=== PATIENT | female | born 1950 | race Caucasian/White ===

== ENCOUNTER 2025-04-26 15:38 | Emergency (ER) | payer MEDICARE, SELFPAY ==
[2025-04-26 15:47] VITALS: BP 163/84; PULSE 87; RESP 14; TEMP 36.5; O2SAT 94
--- NOTE | 2025-04-26 16:11 | ED.EAR ---
HPI - Ear Problem General Chief complaint: Ear Stated complaint: Right Ear Problem Time Seen by Provider: 04/26/25 15:57 Source: patient and RN notes reviewed Mode of arrival: ambulatory Limitations: no limitations History of Present Illness HPI Narrative: Patient presents today complaining of right ear pain that she currently rates 2/10 with muffled hearing. She had a cold 3 weeks ago and all other symptoms have resolved after taking Mucinex. She tried some Debrox drops yesterday without improvement of symptoms. Related Data Home Medications ?Medication ?Instructions ?Recorded ?Confirmed ?Last Taken ?Type albuterol sulfate 90 mcg/actuation inhalation 04/26/25 Unknown History aerosol inhaler amlodipine 5 mg tablet mg 04/26/25 Unknown History citalopram 20 mg tablet mg 04/26/25 Unknown History diazepam 5 mg tablet mg 04/26/25 Unknown History estradiol 0.5 mg tablet mg 04/26/25 Unknown History gabapentin 100 mg capsule mg 04/26/25 Unknown History ibandronate 150 mg tablet mg PO 04/26/25 Unknown History lisinopril 10 mg tablet mg 04/26/25 Unknown History lovastatin 40 mg tablet mg 04/26/25 Unknown History pantoprazole 40 mg tablet,delayed mg PO 04/26/25 Unknown History release ropinirole 0.5 mg tablet mg 04/26/25 Unknown History Allergies Allergy/AdvReac Type Severity Reaction Status Date / Time No Known Allergies Allergy Verified 04/26/25 15:51 Review of Systems Review of Systems: CONSTITUTIONAL: Denies body aches, fever, chills, or sweats. EYES: Denies visual changes, redness, or discharge. ENT: Denies rhinorrhea, congestion, sore throat. + right ear pain and muffling CARDIOVASCULAR: Denies chest pain, palpitations, or edema. RESPIRATORY: Denies cough or dyspnea. GASTROINTESTINAL: Denies abdominal pain, nausea, vomiting, or diarrhea. GENITOURINARY: Denies dysuria or hematuria. SKIN: Denies rash, itching, or wounds. MUSCULOSKELETAL: Denies back pain, joint pain, or myalgia. NEUROLOGIC: Denies headache, numbness, tingling, or weakness. PSYCH: Denies depression or anxiety. PMFSH Comments At time of signature, I have reviewed and agree with nursing past medical, surgical, social and family history unless otherwise noted. Please see nursing chart for further information. There is no relevant family history pertinent to the presenting complaint Exam Narrative: GENERAL: Well-appearing, well-nourished, and in no acute distress. HEAD: Normocephalic, atraumatic. EYES: EOMI. No redness or drainage. Conjunctivae normal. ENT: Mucous membranes pink and moist. Right ear: Canal normal. No movement or tragal tenderness. Patient's TM appears to have a large rupture in the center. No erythema or drainage noted. NECK: Normal AROM. CHEST: No respiratory distress. EXTREMITIES: Normal range of motion. No edema. SKIN: Warm, dry, no rash. Capillary refill normal. Normal skin turgor. NEURO: No focal deficits. Alert and oriented x3. Gait steady. PSYCH: Normal affect. No signs of depression or anxiety. Course Course Level of Care: Express Care Visit Vital Signs Vital signs: Vital Signs Temperature 97.7 F 04/26/25 15:47 Pulse Rate 87 04/26/25 15:47 Respiratory Rate 14 04/26/25 15:47 Blood Pressure 163/84 H 04/26/25 15:47 Pulse Oximetry 94 04/26/25 15:47 Oxygen Delivery Room Air 04/26/25 15:47 Temperature 97.7 F 04/26/25 15:47 Pulse Rate 87 04/26/25 15:47 Respiratory Rate 14 04/26/25 15:47 Blood Pressure 163/84 H 04/26/25 15:47 Pulse Oximetry 94 04/26/25 15:47 Oxygen Delivery Room Air 04/26/25 15:47 Reviewed Medical Decision Making MDM Narrative Medical decision making narrative: TM appears to be ruptured. Recommend ENT follow-up. Precautions given. Differential Diagnosis Differential Diagnosis: Otitis media, otitis externa, ruptured TM, serous otitis, cerumen impaction Vital Signs Vital Signs: Vital Signs Temperature 97.7 F 04/26/25 15:47 Pulse Rate 87 04/26/25 15:47 Respiratory Rate 14 04/26/25 15:47 Blood Pressure 163/84 H 04/26/25 15:47 Pulse Oximetry 94 04/26/25 15:47 Oxygen Delivery Room Air 04/26/25 15:47 Temperature 97.7 F 04/26/25 15:47 Pulse Rate 87 04/26/25 15:47 Respiratory Rate 14 04/26/25 15:47 Blood Pressure 163/84 H 04/26/25 15:47 Pulse Oximetry 94 04/26/25 15:47 Oxygen Delivery Room Air 04/26/25 15:47 Critical Care Time Critical Care Time Critical Care Time: No Discharge Plan Discharge Clinical Impression: Eardrum rupture, right Patient Disposition: Home Condition: Stable Instructions: Ruptured Eardrum (ED) Additional Instructions: Based on your exam, your eardrum appears to be ruptured. Please follow-up with ENT. Keep your ear as dry as possible. Your blood pressure was elevated above 120/80 today at Urgent Care. This puts you above the threshold for follow up. Please schedule a followup visit with your personal physician as soon as possible, for further evaluation and treatment. Even blood pressure exceeding 120/80 may indicate pre-hypertension. Patient Language: Taiwanese Prescriptions: No Action lovastatin 40 mg tablet amlodipine 5 mg tablet citalopram 20 mg tablet pantoprazole 40 mg tablet,delayed release (DR/EC) PO ropinirole 0.5 mg tablet lisinopril 10 mg tablet gabapentin 100 mg capsule estradiol 0.5 mg tablet albuterol sulfate 90 mcg/actuation HFA aerosol inhaler INHALATION diazepam 5 mg tablet ibandronate 150 mg tablet PO Follow-up/Referrals: Pravin,Isidoro Stanley MD [Primary Care Provider] - Marko Souza MD [Physician] - Time of Disposition: 16:14
--- OUTSIDE RECORDS SUMMARY | 2025-04-26 17:24 | XMS_ITS | Encounter Summary ---
Author Organization [facility] Address [address] [place] [address] Phone Care Team Providers Care Preparation Operator Name Role Phone Lalita Domingo DO Primary Care Provider [phone] Isidoro Costello MD Primary Care Provider [phone] Reason for Referral * Radiology Services (Routine) - Closed Specialty Diagnoses / Procedures Referred By Shari quintana Referred To Contact Radiology Diagnoses Pre-op exam Encounter for patient concern about exposure to infectious organism Procedures EKG 12 LEAD Balaji Jenkins MD Phone: tel: fax: Referral ID Status Reason Start Date Expiration Date Visits Re quested Visits Authorized Closed 09/24/2022 1 1 E AIDE * Radiology Services (Routine) - Closed Specialty Diagnoses / Procedures Referred By Shari quintana Referred To Contact Radiology Diagnoses Pre-op exam Encounter for patient concern about exposure to infectious organism Procedures XR CHEST 2 VIEWS Balaji Jenkins MD Phone: tel: fax: Referral ID Status Reason Start Date Expiration Date Visits Re quested Visits Authorized Closed 09/24/2022 1 1 E AIDE Encounter Details Date Type Department Care Team (Latest Contact Info) Description 09/24/2022 Transcribe Orders [facility] Patient Access Admitting [address] [place] [id number] Balaji Jenkins MD [address] [place] [address] Pre-op exam (Primary Dx); Encounter for patient concern about exposure to infectious organism Social History Tobacco Use Types Packs/Day Years Used Date Smoking Tobacco: Every Day Cigarettes 1 50 Smokeless Tobacco: Never Alcohol Use Standard Drinks/Week Comments Yes 0 (1 standard drink = 0.6 oz pur e alcohol) social Comments No Sex and Gender Information Value Date Recorded Sex Assigned at Not on file Legal Sex Female 7:39 PM CDT Gender Identity Not on file Sexual Orientation Not on file documented as of this encounter Plan of Treatment Scheduled Orders Name Type Priority Associated Diagnoses Orde r Schedule SARS-COV-2 BY MOLECULAR Microbiology Routine Pre-op exam Encounter for patient concern about exposure to infectious organism Expected: 09/24/2022, Expires: 09/24/2023 documented as of this encounter Results * XR CHEST 2 VIEWS (10/14/2022 1:13 PM NURSE AIDE) Anatomical Region Laterality Modality Chest N/A Digital Radiogra phy 10/15/2022 11:4 5 PM NURSE AIDE Impressions 10/15/2022 11:48 PM NURSE AIDE IMPRESSION: COPD. No active pulmonary disease. Narrative 10/15/2022 11:48 PM NURSE AIDE EXAM DESCRIPTION: XR CHEST 2 VIEWS REASON FOR STUDY: Preop lumbar laminectomy. 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 Benign essential hypertension. TECHNIQUE: Frontal and lateral radiographic views of the chest acquired. COMPARISON: 08/24/2018 FINDINGS: LUNGS/PLEURA: No focal consolidation or pneumothorax. No pleural effusion. Emphysema. Postoperative changes of left upper lobectomy. HEART/MEDIASTINUM: Heart size is normal. Normal mediastinal and hilar contours. HARDWARE/LINES/TUBES: None. BONES: No acute findings. OTHER: No other significant finding. THIS IS AN ELECTRONICALLY VERIFIED FINAL REPORT 10/15/2022 11:45 PM - Electronically signed by Julianjimmy Wu M.D. KT: SHAWN Report ID: [id number] Reading Location: [id number] Procedure Note Julian Wu MD - 10/15/2022 EXAM DESCRIPTION: XR CHEST 2 VIEWS REASON FOR STUDY: Preop lumbar laminectomy. 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 Benign essential hypertension. TECHNIQUE: Frontal and lateral radiographic views of the chest acquired. COMPARISON: 08/24/2018 FINDINGS: LUNGS/PLEURA: No focal consolidation or pneumothorax. No pleural effusion. Emphysema. Postoperative changes of left upper lobectomy. HEART/MEDIASTINUM: Heart size is normal. Normal mediastinal and hilar contours. HARDWARE/LINES/TUBES: None. BONES: No acute findings. OTHER: No other significant finding. THIS IS AN ELECTRONICALLY VERIFIED FINAL REPORT 10/15/2022 11:45 PM - Electronically signed by Julian Wu M.D. KT: SHAWN Report ID: [id number] Reading Location: [id number] IMPRESSION: COPD. No active pulmonary disease. Balaji Jenkins MD IMG DIAGNOSTIC ORDERABLES Final Result * EKG 12 LEAD (10/14/2022 12:40 PM NURSE AIDE) Ventricular Rate 90 BPM EXTERNAL EKG Atrial Rate 90 BPM EXTERNAL EKG P-R Interval 146 ms EXTERNAL EKG QRS Duration 88 ms EXTERNAL EKG Q-T Duration 362 ms EXTERNAL EKG QTC CALCULATION 442 ms EXTERNAL EKG P [place] 65 degrees EXTERNAL EKG R [place] -39 degrees EXTERNAL EKG T [place] 52 degrees EXTERNAL EKG 10/14/2022 12:4 0 PM NURSE AIDE Impressions EXTERNAL EKG - 10/15/2022 12:42 PM NURSE AIDE Normal sinus rhythm Left axis deviation Abnormal ECG No previous ECGs available Confirmed by Torrey Haq ([id number]) on 10/15/2022 12:42:48 PM Narrative Procedure Note Torrey Ramos MD - 10/15/2022 IMPRESSION: Normal sinus rhythm Left axis deviation Abnormal ECG No previous ECGs available Confirmed by Torrey Haq ([id number]) on 10/15/2022 12:42:48 PM Balaji Jenkins MD IMG ECG ORDERABLES Final Result EXTERNAL EKG * (ABNORMAL) CMP (COMPREHENSIVE METABOLIC PANEL) (10/14/2022 12:35 PM NURSE AIDE) SODIUM 131(L) 136 - 144 mmol/L 10/14/2022 1:28 PM NURSE AIDE [facility] POTASSIUM 3.8 3.5 - 5.1 mmol/L 10/14/2022 1:28 PM [facility] CHLORIDE 97(L) 100 - 110 mmol/L 10/14/2022 1:28 PM [facility] CO2, VENOUS 25 22 - 32 mmol/L 10/14/2022 1:28 PM [facility] ANION GAP 12.8 8.0 - 20.0 mmol/L 10/14/2022 1:28 PM [facility] GLUCOSE 117(H) 70 - 99 mg/dL 10/14/2022 1:28 PM [facility] BUN 14 8 - 23 mg/dL 10/14/2022 1:28 PM [facility] CREATININE, BLOOD 0.66 0.60 - 1.10 mg/dL 10/14/2022 1:28 PM [facility] BUN/CREATININE RATIO 21(H) 12 - 20 ratio 10/14/2022 1:28 PM [facility] TOTAL PROTEIN 8.0 6.0 - 8.3 g/dL 10/14/2022 1:28 PM [facility] ALBUMIN 4.2 3.5 - 5.2 g/dL 10/14/2022 1:28 PM [facility] Comment: The colormetric methods used for the determination of Albumin may lead to falsely elevated test results in patients suffering from renal failure or insufficiency due to interference with other proteins. A/G RATIO 1.1 1.0 - 2.0 10/14/2022 1:28 PM NURSE AIDE [facility] CALCIUM 10.7(H) 8.9 - 10.3 mg/dL 10/14/2022 1:28 PM NURSE AIDE [facility] T BILI <0.3 <=1.2 mg/dL 10/14/2022 1:28 PM NURSE AIDE [facility] SGOT (AST) 12 <=32 U/L 10/14/2022 1:28 PM NURSE AIDE [facility] SGPT (ALT) 12 <=41 U/L 10/14/2022 1:28 PM NURSE AIDE [facility] ALKALINE PHOSPHATASE 76 35 - 105 U/L 10/14/2022 1:28 PM NURSE AIDE [facility] IS THE PATIENT REQUIRED TO BE FASTING? No 10/14/2022 1:28 PM NURSE AIDE [facility] GFR, ESTIMATED >60 >=60 10/14/2022 1:28 PM NURSE AIDE [facility] Comment: Creatinine Clearance is the preferred criteria for selecting drug dose adjustments in renally impaired patients. The GFR is provided as additional pertinent clinical information. GFR is reported in mL/min/1.73 sq m. Calculation based on the Chronic Kidney Disease Epidemiology Collaboration (CKD- EPI) equation refit without adjustment for race. GFR, EST. >60 >=60 022 1:28 PM NURSE AIDE [facility] GFR, EST. NONAFRICAN >60 >=60 10/14/2022 1:28 PM NURSE AIDE [facility] Blood Venipuncture / Unknown 10/14/2022 12:35 PM NURSE AIDE 10/14/2022 1:00 PM NURSE AIDE us Balaji Jenkins MD CHEMISTRY ORDERABLES Final Resul t [facility] [address] [place] [address] documented in this encounter Visit Diagnoses Diagnosis Pre-op exam- Primary Preoperative examination, unspecified Encounter for patient concern about exposure to infectious organism Pre-op exam Preoperative examination, unspecified Encounter for patient concern about exposure to infectious organism Pre-op exam Preoperative examination, unspecified Encounter for patient concern about exposure to infectious organism documented in this encounter Additional Health Concerns Infection Onset Date Last Indicated Resolved Time COVID - 19 09/24/2022 09/24/2022 10/04/2022 12:1 6 AM NURSE AIDE COVID - 19 Confirmed 10/22/2022 10/22/2022 023 12:16 AM NURSE AIDE documented as of this encounter Care Teams Preparation Operator Relationship Specialty Start Date End Date Lalita Domingo DO [address] [facility] [address] [place] [address] [place] [id number] PCP - General Family Medicine 05/16/20 04/01/23 Isidoro Costello MD [address] [place] [address] PCP - General Family Medicine 04/02/23 documented as of this encounter
--- OUTSIDE RECORDS SUMMARY | 2025-04-26 17:24 | XMS_ITS | Encounter Summary ---
Author Organization [facility] Healthcare Address [address] [place] [address] Care Team Providers Care Burglar Alarm Superintendent Name Role Phone Harley Mcgregor MD Unavailable [phone] Cesar Mishra MD Unavailable [phone] Isidoro Costello MD Primary Care Provider [phone] Jazmin Bryant NP Unavailable Roge Villanueva MD Unavailable [phone] Encounter Details Date Type Department Care Team (Late st Contact Info) Description 03/15/2025 Results Follow-Up [facility] Primary Care at [address] [id number] Isidoro Costello MD [address] [place] [address] [address] [place] [address] CT Abdomen Pelvis WO Contrast Social History Tobacco Use Types Packs/Day Years Used Date Smoking Tobacco: Heavy Smoker Cigarettes 1 58.5 Started: 11/09/1966 Passive Smoke Exposure: Current Smokeless Tobacco: Never Comments:Smoking History Pac ks/day: 0.5 Packs last month. 1 PPD x 50 plus years. Alcohol Use Standard Drinks/Week Comments No 0 (1 standard drink = 0.6 oz pur e alcohol) AUDIT-C Answer Date Recorded Q1: How often do you have a drink containing alc ohol? Monthly or less 11/23/2024 Q2: How many drinks containi ng alcohol do you have on a typical day when you are drinking? 1 or 2 11/23/2024 Q3: How often do you have si x or more drinks on one occasion? Never 11/23/2024 PHQ-2 Answer Date Recorded PHQ-2 Total Score (If total score is 3 or more points, staff should administer the PHQ-9) 0 11/29/2024 PHQ-9 Answer Date Recorded PHQ-9 Total Score 16 07/14/2024 Personal Safety Answer Date Recorded Have you ever been in or are you currently in a harmful physical or emotional relationship or is someone making you feel afraid or unsafe? Denies 08/17/2023 Comments No Sex and Gender Information Value Date Recorded Sex Assigned at Not on file Legal Sex Female 12:33 PM RN TELE Gender Identity Not on file Sexual Orientation Not on file documented as of this encounter Miscellaneous Notes * Telephone Encounter - Nirali Miller - 03/16/2025 12:29 PM CDT Call Back Caller???s Concern: I read patient Dr Costello's note and they expressed understanding Does message need to be routed? No documented in this encounter Plan of Treatment Not on file documented as of this encounter Visit Diagnoses Not on filedocumented in this encounter Care Teams Burglar Alarm Superintendent Relationship Specialty Start Date End Date Isidoro Costello MD [address] [facility] [address] [place] [address] PCP - General Family Medicine 12/18/22 Harley Mcgregor MD Consulting Physician Thoracic Surgery 12/27/18 Cesar Mishra MD Consulting Physician Gastroenterology 11/11/19 Jazmin Bryant NP [address] [place] [address] Nurse Practitioner Family Medicine 12/18/22 Roge Villanueva MD [address] [address] Medical Oncologist/Hematologis t Hematology and Oncology 02/19/23 documented as of this encounter
--- OUTSIDE RECORDS SUMMARY | 2025-04-26 17:24 | XMS_ITS | Clinical Summary ---
Author Organization [facility] Address [address] [place] [address] Care Team Providers Care Loan Administrator Name Role Phone Harley Mcgregor MD Unavailable [phone] Cesar Mishra MD Unavailable [phone] Isidoro Costello MD Primary Care Provider Jazmin Bryant NP Unavailable Roge Villanueva MD Unavailable [phone] Allergies No known active allergies Medications cyanocobalamin (Vitamin B-12) 1,000 mcg tabletIndications:Prev ention of Vitamin B12 Deficiency Take 1 tablet (1,000 mcg total) by mouth daily Active dyybwyxdiwwc-fcvo-afkh c acid 18-400 mg-mcg tabletIndications:Zabrina min Deficiency Prevention Take 1 tablet by mouth daily Active naloxone (NARCAN) 4 mg/actuation spray,non-aerosol Administer 1 spray into affected nostril(s) as needed for opioid reversal or respiratory depression Call 911. Administer a single spray in one nostril. Repeat every 3 minutes as needed if no or minimal response. 2 each 2022 Active Additional Information Patient not taking.Reported on 03/21/2025 rvmtpbaucc-dexykhcn-ja rmoterol (BREZTRI) 160-9-4.8 mcg/actuation inhalerIndications:Bro nchospasm Prevention with COPD Inhale 2 puffs 2 (two) times a day 10.7 g 3 2023 Active Additional Information Patient not taking.Reported on 03/21/2025 amLODIPine (NORVASC) 5 mg tabletIndications:Prim roz hypertension TAKE 1 TABLET(5 MG) BY MOUTH DAILY 90 tablet 3 2023 Active estradioL (ESTRACE) 0.5 mg tablet Take 1 tablet (0.5 mg total) by mouth daily 90 tablet 3 09/27 Active lisinopriL (PRINIVIL,ZESTRIL) 10 mg tabletIndications:Prim roz hypertension Take 1 tablet (10 mg total) by mouth daily 90 tablet 1 2024 Active ibandronate (BONIVA) 150 mg tabletIndications:Post -Menopausal Osteoporosis Take 1 tablet (150 mg total) by mouth every 30 (thirty) days Take in AM with glass of water prior to food, don't lie down for 30 minutes. 3 tablet 3 12/26 Active lovastatin (MEVACOR) 40 mg tabletIndications:Pure hypercholesterolemia TAKE 1 TABLET(40 MG) BY MOUTH EVERY NIGHT 90 tablet 3 2024 Active albuterol HFA (ProAir HFA) 90 mcg/actuation inhalerIndications:Chr onic obstructive pulmonary disease, unspecified COPD type (HCC) Inhale 2 puffs as directed 1 each 11 2024 Active vonoprazan (Voquezna) 20 mg tablet Take 20 mg by mouth daily 90 tablet 3 2024 Active ondansetron (ZOFRAN) 4 mg tablet Take 1 tablet (4 mg total) by mouth 4 (four) times a day as needed for nausea or vomiting 20 tablet 3 2024 Active senna-docusate (PERICOLACE) 8.6-50 mg Take 2 tablets by mouth nightly as needed for constipation 180 tablet 3 2024 Active gabapentin (NEURONTIN) 100 mg capsule Take 1 capsule (100 mg total) by mouth 3 (three) times a day 90 capsule 2 03/22 Active rOPINIRole (REQUIP) 0.5 mg tablet Take 1 tablet (0.5 mg total) by mouth 2 (two) times a day 180 tablet 1 2024 Active diazePAM (VALIUM) 5 mg tabletIndications:Gene ralized anxiety disorder BY MOUTH 60 tablet 2024 Active citalopram (CeleXA) 20 mg tabletIndications:Mode rate episode of recurrent major depressive disorder (HCC),Generalized anxiety disorder TAKE 1 TABLET (20 MG TOTAL) BY MOUTH DAILY 90 tablet 1 04/21 Active citalopram (CeleXA) 20 mg tabletIndications:Mode rate episode of recurrent major depressive disorder (HCC),Generalized anxiety disorder Take 1 tablet (20 mg total) by mouth daily 90 tablet 3 04/21 Discontinued rOPINIRole (REQUIP) 0.5 mg tablet TAKE 1 TABLET(0.5 MG) BY MOUTH TWICE DAILY 180 tablet 1 03/29 Discontinued( Reorder) diazePAM (VALIUM) 5 mg tabletIndications:Gene ralized anxiety disorder TAKE 1 TABLET(5 MG) BY MOUTH EVERY 12 HOURS NEEDED FOR ANXIETY 60 tablet 1 04/11 Discontinued Active Problems Problem Noted Date Diagnosed Date Epigastric abdominal tenderness without rebound tenderness 03/21/2025 Angiodysplasia of gastrointestinal tract 025 Epigastric pain 03/21/2025 Hx of peptic ulcer 03/21/2025 Hormone replacement therapy 09/27/2024 Assessment & Plan (09/27/2024 11:29 AM SECURITY DOOR INSTALLER): Risks and benefits of hormone replacement (HRT) for vasomotor symptoms related to menopause discussed. Patient aware risks associated with HRT include increased risk of blood clots, heart attack, stroke, and increased risk of breast cancer. Patient verbalizes understanding of risk and benefits and wishes to proceed with HRT. - Refill on oral estradiol 0.5 mg erx'd to [facility] per patient request. Restless leg syndrome 08/29/2024 Sacroiliitis 09/14/2023 halfway (current) use of opiate analgesic 04/2023 Adjustment insomnia 09/07/2023 Overview (09/07/2023): continuing mirtazepine 15 mg qhs also will continue citalopram, Abilfy Encounter for Medicare annual wellness exam 06/11 Assessment & Plan (07/08/2023 4:43 PM CDT): A(n) yearly Medicare Annual Wellness Visit has been performed today. Elise Romano is not up to date on screening tests. She is in need of DEXA and Colon cancer screening. She is not up to date on needed preventative vaccinations; She is in need of Influenza. We discussed healthy lifestyle habits, educational material has been given. Medications reviewed, changes documented as per the medical record and discussed with patient along with risks vs benefits. Urged discussion about counseling resources through [facility] Flu shot will be due later this fall Will increase Abilify to 5 mg daily Continuing current regimen otherwise Will leave labs to next V, as hematology watching counts and last lipid panel was good Return in 1 month Encounter for screening colonoscopy 04/02/2023 [facility] Pap smear of vagina 12/15/2022 Overview (12/15/2022): Negative HR HPV x 4. Two areas consistent with mild dysplasia not biopsied. Pap repeated. Quitting smoking to help resolve dysplasia recommended. 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 DDD (degenerative disc disease), lumbar 01/17/20 22 Lumbar radiculopathy 12/25/2021 Assessment & Plan (10/27/2022 2:00 PM SECURITY DOOR INSTALLER): Status post laminectomy. Patient is clinically improving. Keep scheduled follow- up appointment with orthopedic surgeon next week. Insomnia secondary to chronic pain 12/25/2021 Left hip pain 12/03/2021 Assessment & Plan (12/03/2021 8:51 PM SECURITY DOOR INSTALLER): Xrays ordered. Toradol given. Will follow. Chronic left-sided low back pain with left-sided sciatica 12/03/2021 Assessment & Plan (12/03/2021 8:51 PM SECURITY DOOR INSTALLER): Referred to pain mgmt for further eval/mgmt. Iron deficiency anemia due to chronic blood loss 11/26/2020 Overview (09/21/2017): EGD, colon 2017, iron infusion 2016 Assessment & Plan (06/27/2022 6:43 PM CDT): Suspect iron infusion caused adverse reaction. 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 Assessment & Plan (11/21/2020 7:58 PM SECURITY DOOR INSTALLER): Patient has been managed with iv Venofer infusions. Suspect persistent chronic occult GI blood loss plus effect of anemia of chronic disease from alcohol use disorder. Assessment & Plan (10/16/2020 8:48 AM SECURITY DOOR INSTALLER): Fatigued. Patient will see hematology/oncology for possible iron infusions. Assessment & Plan (06/13/2020 9:14 AM CDT): Resolved. Assessment & Plan (01/04/2020 2:22 PM SECURITY DOOR INSTALLER): Last hgb and iron levels were normal. Plan to repeat these at next appointment. Assessment & Plan (11/24/2019 9:25 AM SECURITY DOOR INSTALLER): EGD showed recently bleeding AVM and diffuse gastropathy. AVM was treated and she was placed on PPI. She had 3 iron infusions back in 10/2019. She has no signs of overt GI bleed at this time. Will schedule colonoscopy to complete workup and recheck iron and CBC today. Will also get CT of abdomen at next appointment once colonoscopy is done. Assessment & Plan (10/19/2019 11:28 AM SECURITY DOOR INSTALLER): PCP increased iron supplement to BID about a week or 2 ago. Pt's iron noted to be 21 and hgb 8. Will schedule for 3 iron infusions and then check CBC and iron about 1 month after receiving infusions. We will set her up for EGD due to past history of AVM's and recent Celebrex use. Pt says she has stopped the Celebrex at her last PCP appointment. Will order 3 IV iron infusions to be done once a week. Will then re-check iron and CBC about 1 month after infusions are completed. Pt told that if she sees active GI bleeding or feeling severely fatigued that she should go to ER right away. Pt and verbalized understanding. Alcohol use 11/21/2020 Assessment & Plan (11/21/2020 8:02 PM SECURITY DOOR INSTALLER): She continues to drink and this will likely eventually cause liver changes. Need to check her liver enzymes every 6 months. Moderate episode of recurrent major depressive d isorder 10/16/2020 Assessment & Plan (02/01/2023 1:38 PM CDT): Abilify trial Discussed counseling, may be helpful If abilify not an option, we may instead increase citalopram to 40 mg daily Clonazepam refilled, but I intend as PRN (use as needed as prescribed) Assessment & Plan (12/18/2022 2:40 PM SECURITY DOOR INSTALLER): Has had increased stress/anxiety as of late. She has been out of her Clonazepam. Discussed prn use for this and may want to consider increasing her Celexa for better overall control. Assessment & Plan (10/27/2022 2:00 PM SECURITY DOOR INSTALLER): Stable. Cont. Current prescription medications. Assessment & Plan (04/27/2022 8:44 PM CDT): Stable. Cont. Current prescription medications. Assessment & Plan (02/27/2021 12:00 PM CDT): Clinically improved, continue current meds. Assessment & Plan (10/16/2020 8:49 AM SECURITY DOOR INSTALLER): Stable. Cont. Current meds. COPD (chronic obstructive pulmonary disease) 08/2020 Assessment & Plan (12/18/2022 4:38 PM SECURITY DOOR INSTALLER): Has been using prn inhaler 2x/day due to SOB. Discussed maintenance inhaler and will trial Anthonytrelpidio, samples provided. Education provided on maintenance vs prn inhaler. Assessment & Plan (04/27/2022 8:55 PM CDT): At baseline, Cont current prescription medication. Assessment & Plan (07/25/2021 3:42 PM CDT): Pt using albuterol daily and ineffective. Pt offered pulmonology referral and pt declined. Dereck added and sent. Pt has f/u in October for recheck Assessment & Plan (02/27/2021 12:00 PM CDT): Mild wheezing. Use albuterol as directed. Patient strongly encouraged to quit smoking. Notify our office if there is no improvement. Assessment & Plan (10/16/2020 8:47 AM SECURITY DOOR INSTALLER): Stable. Cont. Current meds. Assessment & Plan (06/13/2020 9:13 AM CDT): Asx. Continue current therapy. Assessment & Plan (03/06/2020 4:43 PM CDT): Asx. Continue current therapy. Assessment & Plan (02/17/2020 10:16 AM CDT): Pulse ox has ranged in the low 90's. She does not wear O2 at home. Pt has albuterol inhaler she has needed it once a night for the last week, and then in the past couple days is also using it in the am Does not take a controller inhaler. Denies any breathing difficulties. This does not appear to be an emergent problem today. We will have PCP address this at office visit at the end of the month. She may need a daily, controller inhaler. Please consider the albuterol as a rescue only medication. If needing the albuterol more than 2xwk, please contact office. Family history of colon cancer in mother 020 Overview (11/23/2019): Added automatically from request for surgery [id number] History of alcohol abuse 11/23/2019 Assessment & Plan (03/06/2020 4:45 PM CDT): Patient aware that she should not drink alcohol with the chronic medications she's currently on. She is aware that concomitant use can cause respiratory depression. Assessment & Plan (11/23/2019 10:56 AM SECURITY DOOR INSTALLER): No alcohol use since hospitalization. History of GI bleed 2019 Overview (2019): Added automatically from request for surgery [id number] Assessment & Plan (11/21/2020 7:57 PM SECURITY DOOR INSTALLER): H/o bleeding AVMs in the duodenum. Likely recurrent bleeding and possibly AVMs in the small bowel. Will schedule EGD VIOLET to be followed by capsule video camera exam of the small intestine. AVM (arteriovenous malformation) 10/19/2019 Assessment & Plan (11/23/2019 10:57 AM SECURITY DOOR INSTALLER): Found recently bleeding AVM on EGD done while hospitalized. Pt has no sign of GI bleed at this time. Assessment & Plan (10/19/2019 11:29 AM SECURITY DOOR INSTALLER): Will schedule EGD due to recent use of Celebrex and history of AVM's. Primary osteoarthritis of right knee 09/02/2018 Arthritis of carpometacarpal (CMC) joint of left thumb 04/12/2018 Degenerative lumbar spinal stenosis 09/23/2017 Assessment & Plan (12/03/2021 8:51 PM SECURITY DOOR INSTALLER): Referred to pain mgmt. Age-related osteoporosis wit hout current pathological fracture 09/21/2017 Assessment & Plan (04/27/2022 8:44 PM CDT): Weight-bearing exercises recommended. Assessment & Plan (10/16/2020 8:48 AM SECURITY DOOR INSTALLER): Weight bearing exercises recommended. Primary hypertension 12/05/2014 Overview (10/16/2020): Assessment & Plan (12/18/2022 2:38 PM SECURITY DOOR INSTALLER): BP elevated today in office and at previous visit with Dr Ceballos. Patient notes it has been elevated as of late, attributing to stress/anxiety. Will increase the Lisinopril to 5 mg daily. Home BP log and follow up in 6 weeks. Assessment & Plan (10/27/2022 2:01 PM SECURITY DOOR INSTALLER): Blood pressure is at goal of less than 140/90, continue current prescription medications. Assessment & Plan (04/27/2022 8:57 PM CDT): BP at goal of < 140/90, cont current Rx meds. Assessment & Plan (07/25/2021 3:39 PM CDT): Stable/ Improved. Blood pressure is adequately controlled on current medication. We will not make any medication changes today. Will have her follow-up in 6 months for continued monitoring and management Assessment & Plan (02/27/2021 11:59 AM CDT): Stable. Cont. Current meds. Assessment & Plan (10/16/2020 8:44 AM SECURITY DOOR INSTALLER): Stable. Cont. Current meds. Assessment & Plan (06/13/2020 9:13 AM CDT): Bps within normal range, cont current meds. Assessment & Plan (03/06/2020 4:42 PM CDT): Stable. Cont. Current meds. Generalized anxiety disorder 12/05/2014 Overview (10/16/2020): Assessment & Plan (12/18/2022 2:41 PM SECURITY DOOR INSTALLER): Has had increased stress/anxiety as of late. She has been out of her Clonazepam. Discussed prn use for this and may want to consider increasing her Celexa for better overall control. Assessment & Plan (10/27/2022 2:01 PM SECURITY DOOR INSTALLER): Stable. Cont. Current prescription medications. Will hold off read feeling clonazepam until patient is off of hydrocodone. Patient understands and will contact office once she has weaned off of the hydrocodone. Assessment & Plan (04/27/2022 8:56 PM CDT): Stable. Cont. Current prescription medications. Assessment & Plan (07/25/2021 3:40 PM CDT): Stable on current medication. Continue Clonazepam as ordered. May follow up in 6 months Assessment & Plan (02/27/2021 12:00 PM CDT): Stable. Cont. Current meds. Assessment & Plan (10/16/2020 8:49 AM SECURITY DOOR INSTALLER): Clinically improved, continue current meds. Assessment & Plan (06/13/2020 9:15 AM CDT): Clinically improved, continue current meds. Assessment & Plan (03/06/2020 4:43 PM CDT): New Rx sent for lower strength tablet. Clinically improved. Assessment & Plan (02/17/2020 10:14 AM CDT): Patient reiterated no suicidal thoughts at this time; take medication as directed; contact 911 and go to the ER if becomes suicidal; discussed side effects of medication with patient; encouraged healthy diet and exericise; encouraged patient to see a counselor Discussed/ordered labs, Condition is worsening encouraged healthy, low carbohydrate lifestyle and at least 150min/week of exercise, currently on citalopram 40mg daily, trazodone 200mg at bedtime, she was recently weaned off of clonazepam 1mg. He weaned her off of the clonazepam 1mg once daily, weaning schedule was 1/2 tab x 1 wk, then every other day, then has been completely off of it for the last 7-10 days. Pt has appointment with Dr Domingo on 03/06/2020. We will send Dr. Costello a message today seeing if he will give patient clonazepam 0.5mg daily until pt sees Dr. Domingo at the end of the month. Dr. Domingo is out of the office today. Gastroesophageal reflux disease 12/05/2014 Overview (10/16/2020): Assessment & Plan (02/27/2021 11:59 AM CDT): Clinically improved, continue current meds. Assessment & Plan (10/16/2020 8:46 AM SECURITY DOOR INSTALLER): Asx. Continue current therapy. Managed by gastroenterology. Assessment & Plan (01/04/2020 2:21 PM SECURITY DOOR INSTALLER): Pt says she has both omeprazole and pantoprazole and unsure which one to take. Pt says her symptoms are well controlled on PPI. Discussed that these are both work the same way. Will have her stop the omeprazole and continue on pantoprazole 40mg daily. Refills given. Benign hypertension 03/25/2014 Overview (02/12/2017): BENIGN HYPERTENSION History of colonic polyps 03/25/2014 Overview (02/12/2017): Hx of colonic polyps Hyperlipidemia 03/25/2014 Overview (06/13/2020): Assessment & Plan (12/18/2022 2:40 PM SECURITY DOOR INSTALLER): Continuing Lovastatin, no side effects reported. Labs ordered. Assessment & Plan (10/27/2022 2:01 PM SECURITY DOOR INSTALLER): Low-cholesterol diet recommended. Continue current prescription medications. Assessment & Plan (04/27/2022 8:56 PM CDT): LDL at goal of < 100. Cont current Rx meds. Assessment & Plan (07/25/2021 3:38 PM CDT): Lipid abnormalities are stable, reviewed previous lipid levels in [facility]. Pharmacotherapy as ordered. Order for lipid panel was given today to be obtained. Pt voiced understanding of lab drawn and continuation of current medication regimen. Assessment & Plan (02/27/2021 11:59 AM CDT): LDL at goal. Continue current management. Assessment & Plan (10/16/2020 8:46 AM SECURITY DOOR INSTALLER): Stable. Cont. Current meds. Assessment & Plan (06/13/2020 9:13 AM CDT): Clinically improved, continue current meds. Assessment & Plan (03/06/2020 4:42 PM CDT): Stable. Cont. Current meds. Disorder of autonomic nervous system 03/25/2014 Overview (02/14/2017): AUTONOMIC NERVE DIS NEC Cigarette nicotine dependence without complicati on 08/08/2013 Overview (03/06/2020): Assessment & Plan (04/27/2022 8:55 PM CDT): Advised patient to quit smoking. Assessment & Plan (10/22/2021 1:56 PM SECURITY DOOR INSTALLER): Advised patient to quit smoking. Assessment & Plan (02/27/2021 12:00 PM CDT): Advised patient to quit smoking. Assessment & Plan (10/16/2020 8:49 AM SECURITY DOOR INSTALLER): Advised patient to quit smoking. Assessment & Plan (06/13/2020 9:15 AM CDT): Advised patient to quit smoking. Assessment & Plan (03/06/2020 4:43 PM CDT): Advised patient to quit smoking. History of lung cancer 06/23/2012 Resolved Problems Problem Noted Date Diagnosed Date Resolved Date History of peptic ulcer disease 03/21/2025 03/21/2025 Impacted cerumen of right ear 10/21/2021 04/21/2022 Iron deficiency anemia due t o chronic blood loss 11/26/2020 06/20/2022 Overview (11/26/2020): Added automatically from request for surgery [id number] Assessment & Plan (02/27/2021 12:00 PM CDT): Asx. Continue current therapy. Atelectasis of both lungs 2019 Sepsis 2019 06/12/2020 Acute respiratory failure wi th hypoxia and hypercapnia 2019 06/12/2020 Acidosis 2019 03/06/2020 Near syncope 2019 03/06/2020 Alcoholic intoxication with complication 2019 10/21/2022 BMI 23.0-23.9, adult 10/15/2018 022 Tear of medial meniscus of r ight knee, initial encounter 09/02/2018 10/14/2019 Mild episode of recurrent ma cortez depressive disorder 03/25/2014 10/15/2020 Overview (03/06/2020): Assessment & Plan (06/13/2020 9:15 AM CDT): Clinically improved, continue current meds. Assessment & Plan (03/06/2020 4:42 PM CDT): Clinically improved, continue current meds. Anxiety state 03/25/2014 10/15/2018 Overview (02/14/2017): ANXIETY STATE NOS Smoking 06/06/2011 02/27/2021 Assessment & Plan (11/21/2020 8:00 PM SECURITY DOOR INSTALLER): Patient continued to smoke unfortunately and she did try several methods to quit but failed. We discussed again the importance of stopping alcohol on her health overall and specially effect on her lungs. Encounters Date Type Department Care Team Description 5 Telephone [facility] Gastroenterology at [address] [place] [address] Charles Jauregui NP 5 Telephone [facility] Primary Care at [address] [address] Isidoro Costello MD 5 Telephone [facility] Primary Care at [address] [address] Odessa Edwards MA 5 8:18 AM CDT - 5 11:59 PM CDT Hospital Encounter [address] [address] Upper abdominal pain Discharge Disposition: Discharge to home or self care [address] [address] Nalremya, Ruba D. 5 2:10 PM CDT Anesthesia Event [address] [phone] Drew Wells DO 5 1:00 PM CDT - 5 1:30 PM CDT Surgery [address] [address] Cesar Mishra MD ESOPHAGOGASTRODUODENOSCOPY BIOPSY 5 11:53 AM CDT - 5 3:13 PM CDT Hospital Encounter [address] [address] Cesar Mishra MD Epigastric pain; Hx of peptic ulcer Discharge Disposition: Discharge to home or self care 5 Orders Only [facility] Gastroenterology at [address] [address] Cesar Mishra MD Upper abdominal pain (Primary Dx) 5 8:15 AM CDT Office Visit [facility] Gastroenterology at [address] [address] Charles Jauregui NP Epigastric abdominal tenderness without rebound tenderness (Primary Dx); Nausea and vomiting, unspecified vomiting type; Chronic gastritis without bleeding, unspecified gastritis type; Angiodysplasia of gastrointestinal tract; Tubular adenoma of colon; Tobacco use disorder; Constipation, unspecified constipation type 5 Telephone [facility] Gastroenterology at [address] [place] [address] Charles Jauregui NP 5 Results Follow-Up [facility] Primary Care at [address] [phone] Isidoro Costello MD CT Abdomen Pelvis WO Contrast 5 1:54 PM CDT - 5 11:59 PM CDT Hospital Encounter [address] [address] Epigastric abdominal tenderness without rebound tenderness Discharge Disposition: Discharge to home or self care [address] [address] Nalepa, February. 5 Results Follow-Up [facility] Primary Care at [address] [phone] Isidoro Costello MD H. pylori antigen, stool Stool 5 Results Follow-Up [facility] Primary Care at [address] [phone] Isidoro Costello MD CBC with auto differential, Differential, auto 5 12:33 PM CDT - 5 11:59 PM CDT Hospital Encounter [address] [address] Epigastric abdominal tenderness without rebound tenderness Discharge Disposition: Discharge to home or self care 5 12:30 PM CDT Lab [facility] Outpatient Lab at [address] [phone] 5 8:30 PM CDT - 5 11:59 PM CDT Hospital Encounter [address] [address] Epigastric abdominal tenderness without rebound tenderness Discharge Disposition: Discharge to home or self care 5 3:30 PM CDT Lab [facility] Outpatient Lab at [address] [phone] 5 3:00 PM CDT Office Visit [facility] Primary Care at [address] [address] Isidoro Costello MD Epigastric abdominal tenderness without rebound tenderness (Primary Dx) from Last 3 Months Immunizations Immunization Administration Dates Next Due Influenza, Quadrivalent, Hig h Dose, Preservative Free, Intrr 08/03/2023,10/27/2022,07/25/2021,07/26 Influenza, Quadrivalent, Spl it, Preservative Free, Intramuscular 09/15/2018 Influenza, Split 07/17/2010 Influenza, Trivalent, Adjuva nted, Intramuscular 09/17/2019,09/15/2018 Influenza, Trivalent, High D ose, Split, Preservative Free, Intramuscular 08/29/2024,09/21/2017,09/15/2016,09/10,08/14/2014 Influenza, Trivalent, IM (MDV) 07/22/2013,2010,08/07/2009 Influenza, Unspecified 08/03/2023(Deferr ed: Patient Refused),07/14/2023,11/09/2022(Deferre d: Patient Refused) Pfizer SARS-CoV-2 Monovalent Vaccination (12+ Yrs) PURPLE 01/29/2021,01/08/2021 Pneumococcal Conjugate PCV 13 09/10/2015 Pneumococcal Polysaccharide PPV23 10/12/2018, Pneumococcal, Unspecified 09/06/2016 Tdap 06/09/2014,04/26/2014 ZOSTER LIVE 08/01/2010 Surgical History Surgery Date Site/Laterality Comments OTHER SURGICAL HISTORY 11/09/2001 - 11/08/2002 Cancer, lung: BRIAN lobectomy OTHER SURGICAL HISTORY 11/09/1990 - 11/08/1991 carpal tunnel: carpal tunnel release CARPAL TUNNEL RELEASE 11/09/1989 - 11/08/1990 Carpal tunnel release HYSTERECTOMY 11/09/1993 - 11/08/1994 Hysterectomy OTHER SURGICAL HISTORY 11/09/1963 - 11/08/1964 : 12 hr labor OTHER SURGICAL HISTORY 11/09/1966 - 11/08/1967 : 4 hr labor OTHER SURGICAL HISTORY Right Carpal tunnel release x 2 TOTAL ABDOMINAL HYSTERECTOMY W/ BILATERAL SALPINGOOPHORECTOMY Hysterectomy, total abdominal, BSO APPENDECTOMY Appendectomy OTHER SURGICAL HISTORY Left Lung Cancer: Upper Lung, Lobectomy OTHER SURGICAL HISTORY Right Breast lump: removal of a benign tumor, breast x 2 COLONOSCOPY 08/09/2016 - 09/08/2016 BACK SURGERY 10/09/2022 - 11/08/2022 Microscopic lumbar laminectomy L3, L4, L5 POLYPECTOMY UPPER GASTROINTESTINAL ENDOSCOPY 03/22/2025 Medical History Medical History Date Comments Hx Other Medical carpal tunnel Hx Other Medical 2010 iron deficiency anemia due to GI bleed Hx Other Medical ; Outc ome: 36W0D week 7lb(s) 12 oz Male Hx Other Medical ; Outc ome: 40W0D week 6lb(s) 4 oz Female Hx Other Medical Lung Cancer; Co mments: MTB 12/05/2014 - Hx Other Medical Breast lump; Co mments: MTB 12/05/2014 - Tear of medial meniscus of r ight knee, initial encounter 09/02/2018 Cancer of lung (HCC) Cancer, scott g Depression Hypertension Colon polyp Family History Medical History Relation Name Comments Lung cancer Father Cancer -lung; Hyperlipidemia Maternal Grandmother Hyper lipidemia; Hypertension Maternal Grandmother Hyperte nsion; Colon cancer Mother Cancer, colon; Hyperlipidemia Mother Hyperlipidemi a; Hypertension Mother Hypertension; Lung cancer Mother Cancer, lung; C ause of : Cancer, lung Relation Name Status Comments Father Maternal Grandmother Mother (Age 85) Social History Tobacco Use Types Packs/Day Years Used Date Smoking Tobacco: Heavy Smoker Cigarettes 1 58.5 Started: 11/09/1966 Passive Smoke Exposure: Current Smokeless Tobacco: Never Tobacco Cessation:Ready to Q uit: Not Asked; Counseling Given: Not Answered Comments:Smoking History Packs/day: 0.5 Packs last month. 1 PPD x 50 plus years. Alcohol Use Standard Drinks/Week Comments No 0 (1 standard drink = 0.6 oz pur e alcohol) AUDIT-C Answer Date Recorded Q1: How often do you have a drink containing alc ohol? 2-4 times a month 03/21/2025 Q2: How many drinks containi ng alcohol do you have on a typical day when you are drinking? 1 or 2 03/21/2025 Q3: How often do you have si x or more drinks on one occasion? Never 03/21/2025 PHQ-2 Answer Date Recorded PHQ-2 Total Score (If total score is 3 or more points, staff should administer the PHQ-9) 0 11/29/2024 PHQ-9 Answer Date Recorded PHQ-9 Total Score 16 07/14/2024 Personal Safety Answer Date Recorded Have you ever been in or are you currently in a harmful physical or emotional relationship or is someone making you feel afraid or unsafe? Denies 03/22/2025 Comments No Sex and Gender Information Value Date Recorded Sex Assigned at Not on file Legal Sex Female 12:33 PM [employer] Gender Identity Not on file Sexual Orientation Not on file Obstetrics History Para Term AB IAB SAB Ectopic Multiple Livin g Live Births 2 2 2 Date Outcome GA Total Labor Labor//3rd Weight Sex Type Anes PTL Janet A1 A5 Name Clin 4 Term 40w0 d 3.515 kg (7 lb 12 oz) M Vag-S pont 7 Term 40w0 d 2.835 kg (6 lb 4 oz) F Vag-S pont Last Filed Vital Signs Vital Sign Reading Time Taken Comments Blood Pressure 165/83 03/22/2025 2:55 PM CDT Pulse 89 03/22/2025 2:55 PM CDT Temperature 35.9 C (96.7 F) 03/22/2025 12:04 PM CDT Respiratory Rate 16 03/22/2025 2:55 PM CDT Oxygen Saturation 94% 03/22/2025 2:55 PM CDT Inhaled Oxygen Concentration - - Weight 54.9 kg (121 lb) 03/22/2025 12:04 PM CDT Height 157.5 cm (5' 2) 03/22/2025 12:04 PM CDT Body Mass Index 22.13 03/22/2025 12:04 PM CDT Plan of Treatment Health Maintenance Due Date Last Done Comments Hepatitis B Screening 1968 Well Visit 65+ 07/06/2024 07/06/2023, 10/09, 10/15/2020, Additional history exists Covid-19 Vaccine ( season) 2024 08/22/2021, 01/29/2021, 01/08/2021 Zoster Vaccine (2 of 3) 07/14/2025 08/01/2010 Post poned from 09/26/2010 (Insurance / Financial) DTaP/Tdap/Td Vaccine (3 - Td or Tdap) 11/08/2025 06/09/2014, 04/26/2014 Postponed from 06/09/2024 (Insurance / Financial) Depression Screening 11/29/2025 11/29/2024, 09/27/2024, 07/14/2024, Additional history exists Osteoporosis Screening-Bone Density Scan 01/12/2026 01/13/2024, 05/16/2020, 05/16/2020, Additional history exists Fall Risk Assessment 03/22/2026 03/22/2025, 11/29/2024, 03/08/2024, Additional history exists Pneumococcal vaccine 65+ Completed 018, 09/06/2016, 09/10/2015, Additional history exists Hepatitis C Screening Completed 06/13/2020 Colon Cancer Screening-CT Colonography Discontinued 08/17/2023, 09/08/2016, 09/08/2016, Additional history exists Colon Cancer Screening-Colonoscopy Discontinued 08/17/2023, 09/08/2016, 09/08/2016, Additional history exists Colon Cancer Screening-DNA Stool Discontinued 08/17/2023, 09/08/2016, 09/08/2016, Additional history exists Colon Cancer Screening-FIT Discontinued 08/17, 01/31/2017, 09/08/2016, Additional history exists Colon Cancer Screening-FOBT Discontinued 08/17/2023, 01/31/2017, 09/08/2016, Additional history exists Colon Cancer Screening-Sigmoidoscopy Discontinued 08/17/2023, 09/08/2016, 09/08/2016, Additional history exists Colorectal Cancer Screening Discontinued Influenza Vaccine Completed 08/29/2024, , 07/14/2023, Additional history exists Breast Cancer Screening-Mammogram Discontinued 10/10/2024, 10/04/2024, 10/04/2024, Additional history exists Procedures Procedure Name Priority Date/Time Associated Diagnosis Comments CT ABDOMEN PANCREAS W WO CONTRAST Schedule VIOLET, Read Routine (Patient lives out of area) 03/28/2025 8:42 AM CDT Upper abdominal pain SURGICAL PATHOLOGY STAT 03/22/2025 2:24 PM CDT Epigastric pain Hx of peptic ulcer ESOPHAGOGASTRODUODENOSCOPY BIOPSY 03/22/2025 2:04 PM CDT Epigastric pain Hx of peptic ulcer EGD 03/22/2025 12:[address] ABDOMEN PELVIS WO CONTRAST Routine 2:10 PM CDT Epigastric abdominal tenderness without rebound tenderness H. PYLORI ANTIGEN, STOOL Routine 025 12:33 PM CDT Epigastric abdominal tenderness without rebound tenderness DIFFERENTIAL AUTO Routine 02/02/2025 12:00 PM CDT Epigastric abdominal tenderness without rebound tenderness CBC WITH AUTO DIFFERENTIAL Routine 02/02 12:00 PM CDT Epigastric abdominal tenderness without rebound tenderness SCREENING MAMMOGRAM 2D BILATERAL Schedule Routine, Read Routine (OP Routine) 10/10/2024 3:56 PM [employer] DEXA AXIAL SKELETON BONE DENSITY 1 OR MORE SITES Schedule Routine, Read Routine (OP Routine) 01/13/2024 1:58 PM [employer] Age-related osteoporosis without current pathological fracture COLONOSCOPY 08/17/2023 8:46 AM CDT HEPATITIS C ANTIBODY Routine 06/13/2020 11:24 AM CDT Encounter for hepatitis C screening test for low risk patient from Last 3 Months or Most Recently Relevant to Health Maintenance Results * CT Abdomen Pancreas W WO Contrast (03/28/2025 8:42 AM CDT) Anatomical Region Laterality Modality Abdomen N/A Computed Tomogra phy 03/28/2025 4:30 PM CDT Narrative 03/28/2025 4:33 PM CDT EXAM DESCRIPTION: CT ABDOMEN PANCREAS W WO CONTRAST REASON FOR STUDY: Epigastric pain Patient has upper abdominal pain for 2 - 3 months Patient had scan done 03/03/2025 w/o contrast TECHNIQUE: CT scan of the abdomen performed without and with intravenous and without oral contrast using helical scanning technique with dynamic intravenous contrast injection. Precontrast images were acquired. Thin slice arterial and portal venous post contrast images were acquired. Reconstructed coronal and sagittal MPR images reviewed. All images stored on PACS. Automated exposure control was used as a dose optimization technique for this examination. CONTRAST TYPE/DOSE: 75mL of IOVERSOL 350 MG IODINE/ML INTRAVENOUS SYRINGE injected via intravenous COMPARISON: 03/03/2025 REFERENCE: Per ACR white paper recommendations, unless otherwise specified no follow-up imaging is recommended for incidental renal and adrenal lesions per consensus recommendations based on imaging criteria. Further lab evaluation could be pursued based on clinical findings. FINDINGS: PANCREAS: No significant calcifications. No adjacent inflammation or peripancreatic fluid collections. No identified cystic or solid masses. Pancreatic duct not dilated. The vessels are patent. ABDOMEN: LOWER CHEST: No significant pulmonary abnormalities. No effusion. LIVER: The liver is enlarged measuring at least 18.5 cm in the craniocaudal dimension. No identified cystic or solid masses. Scattered microcalcifications consistent with old granulomatous disease. GALLBLADDER: No stones. No wall thickening or inflammatory changes. BILE DUCTS: No intrahepatic or extrahepatic ductal dilatation. SPLEEN: Normal size. No focal lesions. Scattered microcalcifications consistent with old granulomatous disease. ADRENALS: A 3.6 cm fat attenuation right adrenal adenoma appears unchanged. There is mild nodular thickening of the left adrenal gland. Calcifications are seen in the left adrenal gland which may be related to prior hemorrhage. KIDNEYS/URINARY TRACT: No identified significant cystic or solid masses. No stones. No hydronephrosis or hydroureter. Symmetric enhancement. GI: No dilated bowel loops. No obvious wall thickening. Normal appendix. No significant diverticular disease. PERITONEUM: No ascites or free air. RETROPERITONEUM: No mass or adenopathy. VASCULATURE: No abdominal aortic aneurysm. MUSCULOSKELETAL: There is disc space narrowing at L2-3 and L3-4. Vacuum disc phenomenon is noted at L4-5. OTHER: No other abnormality. IMPRESSION: 1. Hepatomegaly. 2. Stable right adrenal adenoma. 3. Evidence of old granulomatous disease. THIS IS AN ELECTRONICALLY VERIFIED FINAL REPORT 03/28/2025 4:33 PM - Electronically signed by Александр Escobar M.D. BS: BS Report ID: [id number] Reading Location: [id number] Procedure Note Александр Escobar MD - 03/28/2025 EXAM DESCRIPTION: CT ABDOMEN PANCREAS W WO CONTRAST REASON FOR STUDY: Epigastric pain Patient has upper abdominal pain for 2 - 3 months Patient had scan done 03/03/2025 w/o contrast TECHNIQUE: CT scan of the abdomen performed without and withintravenous and without oral contrast using helical scanning technique with dynamic intravenous contrast injection. Precontrast images were acquired. Thin slice arterial and portal venous post contrast images were acquired. Reconstructed coronal and sagittal MPR images reviewed. All images storedon PACS. Automated exposure control was used as a dose optimizationtechnique for this examination. CONTRAST TYPE/DOSE: 75mL of IOVERSOL 350 MG IODINE/ML INTRAVENOUSSYRINGE injected via intravenous COMPARISON: 03/03/2025 REFERENCE: Per ACR white paper recommendations, unless otherwise specifiedno follow-up imaging is recommended for incidental renal and adrenal lesionsper consensus recommendations based on imaging criteria. Further labevaluation could be pursued based on clinical findings. FINDINGS: PANCREAS: No significant calcifications. No adjacent inflammation or peripancreatic fluid collections. No identified cystic or solid masses. Pancreatic duct not dilated. The vessels are patent. ABDOMEN: LOWER CHEST: No significant pulmonary abnormalities. No effusion. LIVER: The liver is enlarged measuring at least 18.5 cm in thecraniocaudal dimension. No identified cystic or solid masses. Scattered microcalcifications consistent with old granulomatous disease. GALLBLADDER: No stones. No wall thickening or inflammatory changes. BILE DUCTS: No intrahepatic or extrahepatic ductal dilatation. SPLEEN: Normal size. No focal lesions. Scattered microcalcifications consistent with old granulomatous disease. ADRENALS: A 3.6 cm fat attenuation right adrenal adenoma appearsunchanged. There is mild nodular thickening of the left adrenal gland.Calcifications are seen in the left adrenal gland which may be related to priorhemorrhage. KIDNEYS/URINARY TRACT: No identified significant cystic or solid masses.No stones. No hydronephrosis or hydroureter. Symmetric enhancement. GI: No dilated bowel loops. No obvious wall thickening. Normalappendix. No significant diverticular disease. PERITONEUM: No ascites or free air. RETROPERITONEUM: No mass or adenopathy. VASCULATURE: No abdominal aortic aneurysm. MUSCULOSKELETAL: There is disc space narrowing at L2-3 and L3-4. Vacuum disc phenomenon is noted at L4-5. OTHER: No other abnormality. IMPRESSION: 1. Hepatomegaly. 2. Stable right adrenal adenoma. 3. Evidence of old granulomatous disease. THIS IS AN ELECTRONICALLY VERIFIED FINAL REPORT 03/28/2025 4:33 PM - Electronically signed by Александр Escobar M.D. BS: BS Report ID: [id number] Reading Location: [id number] Cesar Mishra MD IMG CT PROCEDURES Final Re sult * Surgical pathology (03/22/2025 2:24 PM CDT) Tissue (Gastric/Stomach biopsy) 03/22/2025 2:22 PM CDT Narrative PATHOLOGY [facility] - 03/24/2025 3:44 PM CDT EPIC results best viewed via link to PDF [facility] Department of Pathology [address] [place] [address] Note to Patients: This report may contain a detailed description of human tissue sent by a health care provider to the laboratory for pathologic evaluation. The content of this report is essential for diagnosis and may provide important critical findings. This information may be unfamiliar to patients to review without a medical professional present. It is advised that the patient review this report in the presence of a health care provider who can answer questions and explain the details. Final Report Patient Name: ELISE ROMANO Address: [address] [place] [address]- Gender: F : 1950 (Age: 74) Service: Gastro Location: [facility] Hospital #: [id number] Patient Type: [facility] [address] Taken: 03/22/2025 Received: 03/23/2025 Accessioned: 03/23/2025 Reported: 03/24/2025 Physician(s):Dr. Cesar Mishra M.D. Diagnosis: Gastric, biopsy: - Minimal chronic inactive gastritis. - No evidence of intestinal metaplasia, dysplasia, or malignancy. - Negative Helicobacter immunostain. Prakash Hall MD Report Electronically Reviewed and Signed Out By Prakash Hall MD 03/24/2025 15:44:41 Specimen(s) Received: A: Gastric biopsy Microscopic Description: Microscopic examination shows a minimal chronic inactive gastritis. There is no evidence of intestinal metaplasia, dysplasia, or malignancy. No definitive Helicobacter organisms are identified on routine H&E staining. A Helicobacter immunostain is performed with appropriately reactive controls on block A1 and is negative. Clinical History: Epigastric pain. History of peptic ulcer. EGD. Gross Description: The specimen is submitted in a single formalin filled container labeled ELISE ROMANO and gastric biopsy. It is 3 fragments of piña tissue between 1 and 2 mm. All in one cassette. Minnie Ayon R.N., P.A./Bailey Ferrara M.D. REPORT IMAGES AND SCANNED DOCUMENTS, IF INCLUDED, ONLY VIEWABLE IN PDF VERSION OF REPORT The performance characteristics of some immunohistochemical stains, fluorescence in-situ hybridization tests and immunophenotyping by flow cytometry cited in this report (if any) were determined by the Surgical Pathology Department at [facility] as part of an ongoing clinical quality manager program and in compliance with federally mandated regulations drawn from the Clinical Laboratory Improvement Act of 1988 (CLIA '88). Some of these tests rely on the use of analyte specific reagents and are subject to specific labeling requirements by the US Food and Drug Administration. Such diagnostic tests may only be performed in a facility that is certified by the Department of Health and Human Services as a high complexity laboratory under CLIA '88. The FDA has determined that such clearance or approval is not necessary. This test is used for clinical purposes. It should not be regarded as investigational or for research. Nevertheless, federal rules concerning the medical use of analyte specific reagents require that the following disclaimer be attached to the report: This test was developed and its performance characteristics determined by the Surgical Pathology Department [facility]. It has not been cleared or approved by the U. S. Food and Drug Administration. Note for decalcified specimens: This assay has not been validated on decalcified tissues. Results should be interpreted with caution given the possibility of false negativity on decalcified specimens Cesar Mishra MD LAB PATHOLOGY ORDERABLES F inal Result PATHOLOGY [facility]) [address] [id number] * EGD (03/22/2025 12:00 PM CDT) Anatomical Region Laterality Modality Other Narrative Procedure Note Cesar Mishra MD - 03/22/2025 12:00 PM CDT [facility] Patient Name: Elise Romano Procedure Date: 03/22/2025 12:00 PM Date of : 1950 Admit Type: Outpatient Age: 74 Gender: Female Attending MD: Cesar Mishra M.D. Room: [facility] ENDOSCOPY ROOM 1 Note Status: Finalized Patient Profile: This is a 74 year old female. Patient complains of significant abdominal pain for 3 months' durationin the upper abdomen mainly epigastric area. No relationship to meals. CT abdomen pelvis without contrast few weeks ago was unremarkable per Procedure: Upper GI endoscopy Indications: Upper abdominal pain Referring MD: Isidoro Costello M.D. Providers: Cesar Mishra M.D. Impression: - Normal examined duodenum. - Erythematous mucosa in the stomach. Biopsied. - Normal esophagus. Recommendation: - Await pathology results. - Continue present medications. - No pathology noted to explain the patient'ssymptoms of pain. Schedule CT of the abdomen pancreasprotocol with contrast. - Trial of gabapentin 100 mg 3 times daily Medicines: Monitored Anesthesia Care Complications: No immediate complications. Estimated Blood Loss: Estimated blood loss: none. Procedure: Pre-Anesthesia Assessment: - Prior to the procedure, a History and Physicalwas performed, and patient medications and allergieswere reviewed. The patient's tolerance of previous anesthesia was also reviewed. The risks andbenefits of the procedure and the sedation options and risks were discussed with the patient. All questions were answered, and informed consent was obtained. Prior Anticoagulants: The patient has taken noanticoagulant or antiplatelet agents. ASA Grade Assessment: Per anesthesia note and evaluation. After reviewing the risks and benefits, the patient was deemed in satisfactory condition to undergo the procedure. The benefits, risks, and alternatives to theprocedure and sedation were discussed and informed consentwas obtained. The scope was passed under direct vision. The Endoscope GIF-H190 [id number] was introduced through the mouth, and advanced to the second partof duodenum. The upper GI endoscopy was accomplished without difficulty. The patient tolerated the procedure well. Findings: The examined duodenum was normal. Diffuse mildly erythematous mucosa without bleeding was found in the entire examined stomach suggestive mild diffuse gastropathy. Biopsies were taken with a cold forceps for histology. Retroflexion stomach in the gastric fundus cardia were unremarkable The examined esophagus was normal. The GE junction was normal Electronically signed by Cesar Mishra M.D. Cesar Mishra M.D. 03/22/2025 2:50:02 PM Number of Addenda: 0 Note Initiated On: 03/22/2025 12:00 PM Procedure Code(s): --- Professional --- 25797, Esophagogastroduodenoscopy, flexible, transoral; with biopsy, single or multiple Diagnosis Code(s): --- Professional --- K31.89, Other diseases of stomach and duodenum R10.10, Upper abdominal pain, unspecified CPT copyright 2020 [employer]. All rights reserved. The codes documented in this report are preliminary and upon inpatient coder reviewmay be revised to meet current compliance requirements. Recognized by the [employer] for promoting quality in endoscopy Cesar Mishra MD ENDOSCOPY PROCEDURES Final Result * CT Abdomen Pelvis WO Contrast (03/03/2025 2:10 PM CDT) Anatomical Region Laterality Modality Body N/A Computed Tomogra phy 03/15/2025 12:1 9 PM CDT Narrative 03/15/2025 12:29 PM CDT EXAM DESCRIPTION: CT ABDOMEN PELVIS WO CONTRAST REASON FOR STUDY: Abdominal pain, acute, nonlocalized Upper abdominal pain, nausea, and diarrhea for 2-3 months Hx of appendectomy, hysterectomy, and lung cancer TECHNIQUE: CT scan of the abdomen and pelvis performed without intravenous and without oral contrast using helical scanning technique. Reconstructed coronal and sagittal MPR images reviewed. All images stored on PACS. Automated exposure control was used as a dose optimization technique for this examination. COMPARISON: 09/07/2016 REFERENCE: Per ACR white paper recommendations, unless otherwise specified no follow-up imaging is recommended for incidental renal and adrenal lesions per consensus recommendations based on imaging criteria. Further lab evaluation could be pursued based on clinical findings. FINDINGS: The sensitivity for detection of visceral lesions is diminished without the use of intravenous contrast. LOWER CHEST: No significant pulmonary abnormalities. No effusion. LIVER: Normal size. No identified cystic or solid masses. GALLBLADDER: Unremarkable. BILE DUCTS: No intrahepatic or extrahepatic ductal dilatation. SPLEEN: Normal size. No focal lesions. PANCREAS: No identified cystic or solid masses. No significant calcifications. No adjacent inflammation or peripancreatic fluid collections. Pancreatic duct not dilated. ADRENALS: 3 cm hypodense right adrenal adenoma appears unchanged. KIDNEYS/URINARY TRACT: Mild atrophy of the left kidney. No evidence hydronephrosis. No evidence of urolithiasis. Urinary bladder is unremarkable. GI: No dilated bowel loops. No obvious wall thickening. No evidence of an inflamed appendix. Scattered diverticular disease without diverticulitis. PERITONEUM: No ascites or free air. RETROPERITONEUM: No mass or adenopathy. REPRODUCTIVE: No adnexal masses. The uterus appears surgically absent. VASCULATURE: No abdominal aortic aneurysm. Severe atheromatous vascular calcifications. MUSCULOSKELETAL: Severe multilevel degenerative disc disease throughout the lumbar spine with moderate to large disc bulges. This can be further evaluated with MRI as indicated. OTHER: No other abnormality. IMPRESSION: No acute findings in the abdomen or pelvis. Colonic diverticulosis without evidence of diverticulitis. Stable right adrenal adenoma. THIS IS AN ELECTRONICALLY VERIFIED FINAL REPORT 03/15/2025 12:29 PM - Electronically signed by Marko Blount M.D. RW: CATHERINE Report ID: [id number] Reading Location: [id number] Procedure Note Marko Blount MD - 03/15/2025 EXAM DESCRIPTION: CT ABDOMEN PELVIS WO CONTRAST REASON FOR STUDY: Abdominal pain, acute, nonlocalized Upper abdominal pain, nausea, and diarrhea for 2-3 months Hx of appendectomy, hysterectomy, and lung cancer TECHNIQUE: CT scan of the abdomen and pelvis performed without intravenousand without oral contrast using helical scanning technique. Reconstructed coronal and sagittal MPR images reviewed. All images stored on PACS. Automated exposure control was used as a dose optimization technique forthis examination. COMPARISON: 09/07/2016 REFERENCE: Per ACR white paper recommendations, unless otherwise specifiedno follow-up imaging is recommended for incidental renal and adrenal lesionsper consensus recommendations based on imaging criteria. Further labevaluation could be pursued based on clinical findings. FINDINGS: The sensitivity for detection of visceral lesions is diminished withoutthe use of intravenous contrast. LOWER CHEST: No significant pulmonary abnormalities. No effusion. LIVER: Normal size. No identified cystic or solid masses. GALLBLADDER: Unremarkable. BILE DUCTS: No intrahepatic or extrahepatic ductal dilatation. SPLEEN: Normal size. No focal lesions. PANCREAS: No identified cystic or solid masses. No significant calcifications. No adjacent inflammation or peripancreatic fluidcollections. Pancreatic duct not dilated. ADRENALS: 3 cm hypodense right adrenal adenoma appears unchanged. KIDNEYS/URINARY TRACT: Mild atrophy of the left kidney. No evidence hydronephrosis. No evidence of urolithiasis. Urinary bladder is unremarkable. GI: No dilated bowel loops. No obvious wall thickening. No evidence ofan inflamed appendix. Scattered diverticular disease without diverticulitis. PERITONEUM: No ascites or free air. RETROPERITONEUM: No mass or adenopathy. REPRODUCTIVE: No adnexal masses. The uterus appears surgically absent. VASCULATURE: No abdominal aortic aneurysm. Severe atheromatousvascular calcifications. MUSCULOSKELETAL: Severe multilevel degenerative disc disease throughoutthe lumbar spine with moderate to large disc bulges. This can be further evaluated with MRI as indicated. OTHER: No other abnormality. IMPRESSION: No acute findings in the abdomen or pelvis. Colonic diverticulosis without evidence of diverticulitis. Stable right adrenal adenoma. THIS IS AN ELECTRONICALLY VERIFIED FINAL REPORT 03/15/2025 12:29 PM - Electronically signed by Marko Blount M.D. RW: CATHERINE Report ID: [id number] Reading Location: [place] [address] Isidoro Costello MD IMG CT PROCEDURES Final Res ult * H. pylori antigen, stool Stool (02/03/2025 12:33 PM CDT) H. pylori Ag, stool Negative Negative Comment: Interpretative Data Testing performed at the [facility] using the Curian HpSA lateral flow immunoassay that detects Helicobacter pylori antigen in feces. This test is FDA cleared and its performance characteristics have been verified by the performing laboratory. False negative H. pylori antigen results may occur in patients on antimicrobials, proton pump inhibitors, or bismuth preparations; if clinically indicated, testing should be repeated on a new specimen two weeks after discontinuing these treatments. Interpretative data last revised November 2020. Testing performed by: [facility], [address] [facility], [place]., [address] Stool 02/03/2025 12:3 3 PM CDT 02/03/2025 9:29 PM CDT Isidoro Costello MD LAB MICROBIOLOGY - GENERAL ORDERABLES Final Result [facility] [address] Department [place] [address] * (ABNORMAL) Differential, auto (02/02/2025 12:00 PM CDT) Neutrophil abs 6.6(H) 1.5 - 6.5 K/cumm Imm gran abs 0.0 0.0 - 0.1 K/cumm [facility] Lymphocyte abs 2.7 0.8 - 3.3 K/cumm [facility] Monocyte abs 1.1(H) 0.2 - 0.8 K/cumm [facility] Eosinophil abs 0.1 0.0 - 0.5 K/cumm [facility] Basophil abs 0.1 0.0 - 0.1 K/cumm [facility] Neutrophil pct 61.9 % [facility] Comment: Interpretive Data Percent cell count reference ranges are not reported, since discordance with absolute values may lead to misinterpretation of CBC data. Current Interpretive Data was last revised on 2018. Imm gran pct 0.3 % [facility] Comment: Interpretive Data Percent cell count reference ranges are not reported, since discordance with absolute values may lead to misinterpretation of CBC data. Current Interpretive Data was last revised on 2018. Lymphocyte pct 25.5 % [facility] Comment: Interpretive Data Percent cell count reference ranges are not reported, since discordance with absolute values may lead to misinterpretation of CBC data. Current Interpretive Data was last revised on 2018. Monocyte pct 10.0 % [facility] Comment: Interpretive Data Percent cell count reference ranges are not reported, since discordance with absolute values may lead to misinterpretation of CBC data. Current Interpretive Data was last revised on 2018. Eosinophil pct 1.3 % [facility] Comment: Interpretive Data Percent cell count reference ranges are not reported, since discordance with absolute values may lead to misinterpretation of CBC data. Current Interpretive Data was last revised on 2018. Basophil pct 1.0 % [facility] Comment: Interpretive Data Percent cell count reference ranges are not reported, since discordance with absolute values may lead to misinterpretation of CBC data. Current Interpretive Data was last revised on 2018. Blood 02/02/2025 12:0 0 PM CDT 02/02/2025 9:01 PM CDT Isidoro Costello MD LAB BLOOD ORDERABLES Final Result [facility] [address] Department [place] [address] * (ABNORMAL) CBC with auto differential (02/02/2025 12:00 PM CDT) WBC 10.7(H) 3.8 - 9.9 K/cumm Hgb 13.9 11.9 - 15.5 g/dL [facility] Hct 41.5 35.6 - 45.5 % [facility] Plt 396 150 - 400 K/cumm [facility] MPV 10.9 9.1 - 12.3 fL [facility] RBC 4.13 3.90 - 5.20 M/cumm [facility] MCV 100.5(H) 81.3 - 96.4 fL [facility] MCH 33.7(H) 27.1 - 33.3 pg [facility] MCHC 33.5 32.3 - 35.7 g/dL [facility] RDW CV 14.3 11.1 - 14.9 % [facility] RDW SD 53.0(H) 35.7 - 48.1 fL [facility] NRBC abs 0.00 0.00 - 0.01 K/cumm [facility] Blood 02/02/2025 12:0 0 PM CDT 02/02/2025 9:01 PM CDT Isidoro Costello MD LAB BLOOD ORDERABLES Final Result [facility] [address] [place] [address] * Screening Mammogram 2D Bilateral (10/10/2024 3:56 PM SECURITY DOOR INSTALLER) Anatomical Region Laterality Modality Breast Bilateral Mammography Historical Provider IMG MAMMO PROCEDURES Shauna l Result * Dexa Axial Skeleton Bone Density 1 or 2 Site (01/13/2024 1:58 PM SECURITY DOOR INSTALLER) Anatomical Region Laterality Modality Body N/A Other 01/13/2024 8:40 PM SECURITY DOOR INSTALLER Narrative 01/13/2024 8:41 PM SECURITY DOOR INSTALLER EXAM DESCRIPTION: DEXA AXIAL SKELETON BONE DENSITY 1 OR MORE SITES REASON FOR STUDY: 73 y/o year old F with given history of: osteoporosis screening postmenopausal Manual Plate Filler/Model: Venafi SL (S/N [id number]) CLINICAL INFORMATION: Current height: 62 inches Maximum height: 64 inches Weight: 129 pounds Risk factors: Postmenopausal, cancer COMPARISON: None available FINDINGS: AP LUMBAR SPINE L1-L4: Total BMD is 1.262 g/cm2 T-score is 2.0 LEFT HIP: Total BMD is 0.672 g/cm2 T-score is -2.2 Femoral neck BMD is 0.533 g/cm2 T-score is -2.8 FRAX: FRAX not reported due to T-scores of hip, femoral neck and/or spine being at or below -2.5 (Osteoporosis). IMPRESSION: Osteoporosis. REFERENCE: Bone mineral density: T-Score: Normal (T-score above or = -1.0) Low bone mass (T-score between -1.0 and -2.5) replaces the previously used term osteopenia Osteoporosis (T-score = or below -2.5) Z-Score: Within the expected range for age (Z-score above -2.0) Below the expected range for age (Z-score is -2.0 or below) Please see below follow up recommendations. Medical evaluation for secondary causes of low bone mineral density may be appropriate. FRAX is a World Health Organization validated fracture risk assessment tool that calculates a person's 10 year probability of a major osteoporosis related fracture and hip fracture. According to the National Osteoporosis Foundation guidelines, postmenopausal women and men age 50 or older with low bone mass and a 10 year probability of a major osteoporosis related fracture = or greater than 20% or a 10 year probability of a hip fracture = or greater than 3% should be considered for pharmacological treatment for the prevention of osteoporosis. For further information, including treatment recommendations, please refer to the 2019 ISCD Official Positions (http://www.iscd.org) and the NOF's Clinician's Guide to Prevention and Treatment of Osteoporosis (http://www.nof.org/professionals/clinical-guidelines) THIS IS AN ELECTRONICALLY VERIFIED FINAL REPORT 01/13/2024 8:41 PM - Electronically signed by Spencer Snow M.D. MF: LONA Report ID: [id number] Reading Location: [place] [address] Procedure Note Spencer Snow MD - 01/13/2024 EXAM DESCRIPTION: DEXA AXIAL SKELETON BONE DENSITY 1 OR MORE SITES REASON FOR STUDY: 73 y/o year old F with given history of:osteoporosis screening postmenopausal Manual Plate Filler/Model: Venafi SL (S/N [id number]) CLINICAL INFORMATION: Current height: 62 inches Maximum height: 64 inches Weight: 129 pounds Risk factors: Postmenopausal, cancer COMPARISON: None available FINDINGS: AP LUMBAR SPINE L1-L4: Total BMD is 1.262 g/cm2 T-score is 2.0 LEFT HIP: Total BMD is 0.672 g/cm2 T-score is -2.2 Femoral neck BMD is 0.533 g/cm2 T-score is -2.8 FRAX: FRAX not reported due to T-scores of hip, femoral neck and/or spine beingat or below -2.5 (Osteoporosis). IMPRESSION: Osteoporosis. REFERENCE: Bone mineral density: T-Score: Normal (T-score above or = -1.0) Low bone mass (T-score between -1.0 and -2.5) replaces thepreviously used term osteopenia Osteoporosis (T-score = or below -2.5) Z-Score: Within the expected range for age (Z-score above -2.0) Below the expected range for age (Z-score is -2.0 or below) Please see below follow up recommendations. Medical evaluation forsecondary causes of low bone mineral density may be appropriate. FRAX is a World Health Organization validated fracture risk assessmenttool that calculates a person's 10 year probability of a major osteoporosisrelated fracture and hip fracture. According to the National OsteoporosisFoundation guidelines, postmenopausal women and men age 50 or older with low bonemass and a 10 year probability of a major osteoporosis related fracture = or greater than 20% or a 10 year probability of a hip fracture = or greaterthan 3% should be considered for pharmacological treatment for the preventionof osteoporosis. For further information, including treatment recommendations, please referto the 2019 ISCD Official Positions (http://www.iscd.org) and the NOF's Clinician's Guide to Prevention and Treatment of Osteoporosis (http://www.nof.org/professionals/clinical-guidelines) THIS IS AN ELECTRONICALLY VERIFIED FINAL REPORT 01/13/2024 8:41 PM - Electronically signed by Spencer Snow M.D. MF: LONA Report ID: [id number] Reading Location: [place] [address] Isidoro Costello MD IMG DXA PROCEDURES Final Re sult * COLONOSCOPY (08/17/2023 8:46 AM CDT) Anatomical Region Laterality Modality Other Narrative Procedure Note Cesar Mishra MD - 08/17/2023 8:46 AM CDT [facility] Patient Name: Elise Romano Procedure Date: 08/17/2023 8:46 AM Date of : 1950 Admit Type: Outpatient Age: 72 Gender: Female Attending MD: Cesar Mishra M.D. Room: [facility] ENDOSCOPY ROOM 1 Note Status: Finalized Patient Profile: This is a 72 year old female. Mother had coloncancer. Colonoscopy for screening. Procedure: Colonoscopy Indications: Screening in patient at increased risk: Familyhistory of 1st-degree relative with colorectal cancer, Last colonoscopy: August 2016 Referring MD: Isidoro Costello M.D. Providers: Cesar Mishra M.D. 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 - Four diminutive polyps in the rectum and in the distal sigmoid colon, removed with a jumbo cold forceps. Resected and retrieved. Recommendation: - Await pathology results. - Repeat colonoscopy in 5 years for screeningpurposes. - Continue present medications. Medicines: Monitored Anesthesia Care Complications: No immediate complications. Estimated Blood Loss: Estimated blood loss: none. Procedure: Pre-Anesthesia Assessment: - Prior to the procedure, a History and Physicalwas performed, and patient medications and allergieswere reviewed. The patient's tolerance of previous anesthesia was also reviewed. The risks andbenefits of the procedure and the sedation options and risks were discussed with the patient. All questions were answered, and informed consent was obtained. Prior Anticoagulants: The patient has taken noanticoagulant or antiplatelet agents. ASA Grade Assessment: Per anesthesia note and evaluation. After reviewing the risks and benefits, the patient was deemed in satisfactory condition to undergo the procedure. The benefits, risks and alternatives of theprocedure and sedation were discussed and informed consentwas obtained. All questions were answered. Please referto the signed informed consent document in the medical record. The scope was passed under direct vision.The Pediatric Colonoscope PCF-H190L [id number] was introduced through the anus and advanced to the the cecum, identified by appendiceal orifice andileocecal valve. The bowel preparation used was Miralax via split dose instruction. The bowel preparation usedwas bisacodyl tablets via split dose instruction. The quality of the bowel preparation was good. Bowelprep was administered using a split dose. Findings: The perianal and digital rectal examinations were normal. The cecum appeared normal. 1 nonbleeding arteriovenous malformations with no stigmata bleeding noted in the cecum left intact The descending colon, transverse colon and ascending colon appeared normal. Many medium-mouthed diverticula were found in the sigmoid colon. Four sessile polyps were found in the rectum and distal sigmoidcolon. The polyps were diminutive in size. These polyps were removed with a jumbo cold forceps. Resection and retrieval were complete. The rectum appeared normal. The rectum was redundant. Retroflexionwas unremarkable. Electronically signed by Cesar Mishra M.D. Cesar Mishra M.D. 08/17/2023 9:18:43 AM Number of Addenda: 0 Note Initiated On: 08/17/2023 8:46 AM Procedure Code(s): --- Professional --- 57721, Colonoscopy, flexible; with biopsy, single or multiple Diagnosis Code(s): --- Professional --- Z80.0, Family history of malignant neoplasm of digestive organs D12.8, Benign neoplasm of rectum D12.5, Benign neoplasm of sigmoid colon K57.30, Diverticulosis of large intestine without perforation orabscess without bleeding CPT copyright 2020 [employer]. All rights reserved. The codes documented in this report are preliminary and upon inpatient coder reviewmay be revised to meet current compliance requirements. Recognized by the [employer] for promoting quality in endoscopy Cesar Mishra MD ENDOSCOPY PROCEDURES Final Result * Hepatitis C antibody (06/13/2020 11:24 AM CDT) Hep C Ab Nonreactive Nonreactive [facility] (MATTHEW) Comment: Interpretive Data Nonreactive: Antibodies to HCV not detected. Does NOT exclude the possibility of recent exposure to HCV. Equivocal: Equivocal for HCV antibodies. Supplemental molecular testing will be automatically performed to determine infection status in accordance with current CDC screening recommendations. Reactive: Positive for HCV antibodies. This may represent current or past HCV infection. Supplemental molecular testing will be automatically performed to determine current infection status in accordance with current CDC screening recommendations. Interpretive data was last revised on 2020. Testing performed by: [facility], [address] [place] [address], [place]., [address] Blood specimen (specimen) 06/13/2020 11:24 AM CDT 06/13/2020 2:37 PM CDT us Lalita Domingo DO LAB MICROBIOLOGY - GENERAL ORDERABLES Final Result [facility] [address] [facility] Department [place] [address] from Last 3 Months or Most Recently Relevant to Health Maintenance Insurance [facility] MEDICARE ADVANTAGE [facility] MEDICARE ADVANTAGE [facility] MEDIC[facility] ADVANTAGE Advance Directives For more information, please contact: [phone] * Full Code (Latest Code Status on File) Date Activated Date Inactivated Comments 03/22/2025 11:58 AM 03/22/2025 7:13 PM * Full Code Date Activated Date Inactivated Comments 03/22/2025 11:58 AM 03/22/2025 11:58 AM * Full Code Date Activated Date Inactivated Comments 08/17/2023 8:31 AM 08/17/2023 1:56 PM * Full Code Date Activated Date Inactivated Comments 07/09/2022 12:37 PM 07/09/2022 6:41 PM * Full Code Date Activated Date Inactivated Comments 11/23/2020 10:13 AM 11/23/2020 5:02 PM Care Teams Loan Administrator Relationship Specialty Start Date End Date Isidoro Costello MD [address] [address] PCP - General Family Medicine 12/18/22 Harley Mcgregor MD Consulting Physician Thoracic Surgery 12/27/18 Cesar Mishra MD Consulting Physician Gastroenterology 11/11/19 Jazmin Bryant NP [address] [facility] [address] [place] [address] Nurse Practitioner Family Medicine 12/18/22 Roge Villanueva MD [address] [facility] [address] [place] [address] Medical Oncologist/Hematologis t Hematology and Oncology 02/19/23
--- OUTSIDE RECORDS SUMMARY | 2025-04-26 17:24 | XMS_ITS | Clinical Summary ---
Author Organization [facility] Address [address] [place] [address] Phone Care Team Providers Care Delivery Recruiter Name Role Phone Isidoro Costello MD Primary Care Provider + [phone] Allergies No known active allergies Medications citalopram (CeleXA) 20 MG Tablet Take by mouth every morning. Active estradiol (ESTRACE) 1 MG Tablet Take 1 mg by mouth daily. Hazardous: Medication requires special safe handling and disposal. Active amLODIPine (NORVASC) 5 MG Tablet Take 5 mg by mouth every morning. Active lovastatin (MEVACOR) 40 MG Tablet Take 40 mg by mouth every evening. Active cyanocobalamin 1000 MCG Tablet Take 500 mcg by mouth daily. Active Multiple Vitamins-Minera ls (CENTRUM PO) Take by mouth daily. Active lisinopril (PRINIVIL, ZESTRIL) 2.5 MG Tablet Take 2.5 mg by mouth daily. Active traZODone (DESYREL) 100 MG Tablet Take 100 mg by mouth nightly. Active pantoprazole (PROTONIX) 40 MG Tablet Delayed Response Take 40 mg by mouth every morning. Active clonazePAM (KlonoPIN) 0.5 MG Tablet Take 0.5 mg by mouth every morning. Active HYDROcodone-deonna taminophen (NORCO) 10-325 MG Tablet Take 1 Tablet by mouth every 6 hours as needed. Active albuterol (ProAir HFA) 108 (90 Base) MCG/ACT Aerosol Solution take 2 Puffs by inhalation every 4 hours as needed. 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 10/22/2022 Tear of medial meniscus of right knee, initial e ncounter 09/02/2018 Primary osteoarthritis of right knee 09/02/2018 Lumbar spinal stenosis 09/23/2017 Family History Medical History Relation Name Comments Cancer Father Cancer Mother Relation Name Status Comments Father Mother Social History Tobacco Use Types Packs/Day Years Used Date Smoking Tobacco: Former Cigarettes 1 50 1 12/10/1971 - 10/09/2022 Smokeless Tobacco: Never Tobacco Cessation:Counseling Given: Not Answered Alcohol Use Standard Drinks/Week Comments Yes 0 (1 standard drink = 0.6 oz pur e alcohol) social Comments No Sex and Gender Information Value Date Recorded Sex Assigned at Not on file Legal Sex Female 7:39 PM CDT Gender Identity Not on file Sexual Orientation Not on file Last Filed Vital Signs Vital Sign Reading Time Taken Comments Blood Pressure 129/56 10/23/2022 5:46 AM AUDIO PRODUCTION MANAGER Pulse 90 10/23/2022 8:16 AM AUDIO PRODUCTION MANAGER Temperature 36.7 C (98 F) 10/23/2022 5:46 AM AUDIO PRODUCTION MANAGER Respiratory Rate 15 10/23/2022 8:16 AM AUDIO PRODUCTION MANAGER Oxygen Saturation 94% 10/23/2022 8:16 AM AUDIO PRODUCTION MANAGER Inhaled Oxygen Concentration - - Weight 58.7 kg (129 lb 7 oz) 10/22/2022 5:51 AM AUDIO PRODUCTION MANAGER Height 160 cm (5' 3) 10/22/2022 5:51 AM AUDIO PRODUCTION MANAGER Body Mass Index 22.93 10/22/2022 5:51 AM AUDIO PRODUCTION MANAGER Plan of Treatment Health Maintenance Due Date Last Done Comments Hepatitis C Virus (HCV) Screening 1950 Zoster Immunization (2 of 3) 09/26/2010 08/01/2010 Respiratory Syncytial Virus (RSV) Immunization (Adult) (1 - 1-dose 75+ series) 2023 SARS-COV-2 Immunization ( season) 2024 08/22/2021, 01/29/2021, 01/08/2021 DEXA Bone Density 01/12/2026 01/13/2024, , 02/17/2018, Additional history exists DTaP/Tdap/Td Immunization Discontinued 06/09/2014, TdaP Immunization Completed 06/09/2014, 04/26/2014 Pneumococcal Immunization (50+ years) Completed 10/12/2018, 09/06/2016, 09/10/2015, Additional history exists Pneumococcal Immunization Combined Discontinued 10/12/2018, 09/06/2016, 09/10/2015, Additional history exists Colonoscopy Discontinued 08/17/2023 Colorectal Cancer Screening Discontinued Influenza Immunization Completed , 08/03/2023, 07/14/2023, Additional history exists Mammogram Discontinued 10/04/2024, 05/10, 06/02/2023, Additional history exists Cologuard Discontinued Hepatitis B Immunization Aged Out No longer eligible based on patient's age to complete this topic Human Papillomavirus (HPV) Immunization Aged Out No longer eligible based on patient's age to complete this topic Immunochemical Fecal Occult Blood Discontinued Meningococcal Immunization (ACWY) Aged Out No longer eligible based on patient's age to complete this topic Rotavirus Immunization Aged Out No lo nger eligible based on patient's age to complete this topic Procedures Procedure Name Priority Date/Time Associated Diagnosis Comments [facility] SCREENING BILATERAL DIGITAL W CAD W STANLEY Routine 10/04/2024 3:28 PM AUDIO PRODUCTION MANAGER Visit for screening mammogram [facility] BONE DENSITOMETRY AXIAL SKELETON Routine 05/16/2020 2:06 PM CDT Postmenopausal from Last 3 Months or Most Recently Relevant to Health Maintenance Results * [facility] SCREENING BILATERAL DIGITAL W CAD W STANLEY (10/04/2024 3:28 PM AUDIO PRODUCTION MANAGER) Anatomical Region Laterality Modality breast Bilateral Mammography 10/04/2024 3:29 PM AUDIO PRODUCTION MANAGER Narrative 10/10/2024 12:53 PM AUDIO PRODUCTION MANAGER - IMTIAZ SCREENING BILATERAL DIGITAL W CAD W STANLEY BILATERAL DIGITAL SCREENING MAMMOGRAM 3D/2D WITH CAD WITH MEDIOLATERAL OBLIQUE CRANIOCAUDAL: 10/04/2024 The study was acquired using digital technology and interpreted from soft copy. Current study was also evaluated with ICAD version 7.2. 2D digital mammographic views, as well as 3D digital tomosynthesis were performed in the CC and MLO projections. CLINICAL: Routine screening. Patient has no complaints. She has reduced range of motion. Personal history of left upper lobe lung cancer. No family history of breast cancer. COMPARISONS: Comparison is made to exams dated: 06/02/2023, 03/28/2022, and 03/06/2021 [facility]. BREAST TISSUE:The breasts are heterogeneously dense, which may obscure small masses. FINDINGS: There are benign calcifications in both breasts. No significant masses, calcifications, or other findings are seen in either breast. There has been no significant interval change. IMPRESSION: BENIGN There is no mammographic evidence of malignancy. A 1 year screening mammogram is recommended. A letter will be sent to the patient with these results. The patient will be entered into a reminder system with a target due date of 1 year for her next screening exam. Electronically signed by: Geneva banks/monty:10/09/2024 18:48:08 Top Lift Trimmer(s): RT Eduardo(R)(M), [facility] letter sent: Normal Exam Reading location: [facility] Mammogram BI-RADS: Category 2: Benign Procedure Note Geneva Dye MD - 10/10/2024 - [facility] SCREENING BILATERAL DIGITAL W CAD W STANLEY BILATERAL DIGITAL SCREENING MAMMOGRAM 3D/2D WITH CAD WITH MEDIOLATERAL OBLIQUE CRANIOCAUDAL: 10/04/2024 The study was acquired using digital technology and interpreted from soft copy. Current study was also evaluated with ICAD version 7.2. 2D digital mammographic views, as well as 3D digital tomosynthesis were performed in the CC and MLO projections. CLINICAL: Routine screening. Patient has no complaints. She has reduced range of motion. Personal history of left upper lobe lung cancer. No family history of breast cancer. COMPARISONS: Comparison is made to exams dated: 06/02/2023, 03/28/2022, and 03/06/2021 [facility]. BREAST TISSUE:The breasts are heterogeneously dense, which may obscure small masses. FINDINGS: There are benign calcifications in both breasts. No significant masses, calcifications, or other findings are seen in either breast. There has been no significant interval change. IMPRESSION: BENIGN There is no mammographic evidence of malignancy. A 1 year screening mammogram is recommended. A letter will be sent to the patient with these results. The patient will be entered into a reminder system with a target due date of 1 year for her next screening exam. Electronically signed by: [place] banks/monty:10/09/2024 18:48:08 Top Lift Trimmer(s): Ibis Norton RT(R)(M), [facility] letter sent: Normal Exam Reading location: [facility] Mammogram BI-RADS: Category 2: Benign us Isidoro Costello MD IMG MAMMO ORDERABLES Final R esult * [facility] BONE DENSITOMETRY AXIAL SKELETON (05/16/2020 2:06 PM CDT) Anatomical Region Laterality Modality BODY N/A Other 05/16/2020 2:14 PM CDT Impressions 05/16/2020 2:16 PM CDT IMPRESSION: Osteopenia of the left hip. Bone mineral density testing of the lumbar spine may be unreliable due to sclerotic degenerative changes at L2-L3. REFERENCE: Bone mineral density: Normal (T-score above or = -1.0) Low bone mass (T-score between -1.0 and -2.5) replaces the previously used term osteopenia Osteoporosis (T-score = or below -2.5) Medical evaluation for secondary causes of low [...] greater than 3% should be considered for treatment. For further information, including treatment recommendations, please refer to the 2013 ISCD Official Positions (http://www.iscd.org) and the NOF's Clinician's Guide to Prevention and Treatment of Osteoporosis (http://www.nof.org/professionals/clinical-guidelines) Narrative 05/16/2020 2:16 PM CDT EXAM DESCRIPTION: [facility] BONE DENSITOMETRY AXIAL SKELETON REASON FOR STUDY: 69 year old female with given history of screening. Railway Station Manager/Model: Payoff (S/N [id number]) CLINICAL INFORMATION: Current height: 63 inches Weight: 128 pounds Risk factors: History of fracture. Current smoker/tobacco user. COMPARISON: 02/17/2018 FINDINGS: AP LUMBAR SPINE L1-L4: Total BMD is 1.434 g/cm2 T-score is 1.9 This value is increased by 8.5% when compared to the prior study. Bone mineral density testing of the lumbar spine may be unreliable due to sclerotic degenerative changes at the L2-L3 level. LEFT HIP: Total BMD is 0.830 g/cm2 T-score is -1.4 This is increased by 0.5% when compared to the prior study Femoral neck BMD is 0.787 g/cm2 T-score is -1.8 Fracture risk assessment (FRAX): 10 year risk for a major osteoporotic fracture is 17.5 % 10 year risk for a hip fracture is 5.3 % The FRAX tool has not been validated in patients currently or previously treated with pharmacotherapy for osteoporosis. In such patients, clinical judgement must be exercised in interpreting FRAX scores as the fracture risk may be overestimated. THIS IS AN ELECTRONICALLY VERIFIED FINAL REPORT 05/16/2020 2:14 PM - Electronically signed by Eleno Wong M.D. SHANEKA: SHANEKA Report ID: [id number] Reading Location: [place] [id number] Procedure Note Eleno Wong MD - 05/16/2020 EXAM DESCRIPTION: [facility] BONE DENSITOMETRY AXIAL SKELETON REASON FOR STUDY: 69 year old female with given history of screening. Railway Station Manager/Model: Payoff (S/N [id number]) CLINICAL INFORMATION: Current height: 63 inches Weight: 128 pounds Risk factors: History of fracture. Current smoker/tobacco user. COMPARISON: 02/17/2018 FINDINGS: AP LUMBAR SPINE L1-L4: Total BMD is 1.434 g/cm2 T-score is 1.9 This value is increased by 8.5% when compared to the prior study. Bone mineral density testing of the lumbar spine may be unreliable due to sclerotic degenerative changes at the L2-L3 level. LEFT HIP: Total BMD is 0.830 g/cm2 T-score is -1.4 This is increased by 0.5% when compared to the prior study Femoral neck BMD is 0.787 g/cm2 T-score is -1.8 Fracture risk assessment (FRAX): 10 year risk for a major osteoporotic fracture is 17.5 % 10 year risk for a hip fracture is 5.3 % The FRAX tool has not been validated in patients currently or previously treated with pharmacotherapy for osteoporosis. In such patients, clinical judgement must be exercised in interpreting FRAX scores as the fracture risk may be overestimated. THIS IS AN ELECTRONICALLY VERIFIED FINAL REPORT 05/16/2020 2:14 PM - Electronically signed by Eleno Wong M.D. SHANEKA: SHANEKA Report ID: [id number] Reading Location: [id number] IMPRESSION: Osteopenia of the left hip. Bone mineral density testing of the lumbar spine may be unreliable due to sclerotic degenerative changes at L2-L3. REFERENCE: Bone mineral density: Normal (T-score above or = -1.0) Low bone mass (T-score between -1.0 and -2.5) replaces the previously used term osteopenia Osteoporosis (T-score = or below -2.5) Medical evaluation for secondary causes of low [...] greater than 3% should be considered for treatment. For further information, including treatment recommendations, please refer to the 2013 ISCD Official Positions (http://www.iscd.org) and the NOF's Clinician's Guide to Prevention and Treatment of Osteoporosis (http://www.nof.org/professionals/clinical-guidelines) Haydee Yen NP IMG DEXA ORDERABLES Final Result from Last 3 Months or Most Recently Relevant to Health Maintenance Insurance MEDICARE C [facility] Care Teams Delivery Recruiter Relationship Specialty Start Date End Date Isidoro Costello MD [facility] [place] [address] PCP - General Family Medicine 04/02/23
--- OUTSIDE RECORDS SUMMARY | 2025-04-26 17:24 | XMS_ITS | Encounter Summary ---
Author Organization [facility] Healthcare Address [address] [place] [address] Care Team Providers Care Division Field Inspector Name Role Phone Harley Mcgregor MD Unavailable [phone] Cesar Mishra MD Unavailable [phone] Isidoro Costello MD Primary Care Provider Jazmin Bryant NP Unavailable Roge Villanueva MD Unavailable [phone] Encounter Details Date Type Department Care Team (Late st Contact Info) Description 03/31/2025 Telephone [facility] Medical [facility] Primary Care at [address] [address] Isidoro Costello MD [address] [place] [address] [address] [place] [address] Social History Tobacco Use Types Packs/Day Years [...] on file Legal Sex Female 12:33 PM TINNER AUT[employer] Gender Identity Not on file Sexual Orientation Not on file documented as of this encounter Miscellaneous Notes * Telephone Encounter - Brittnee Padgett - 03/31/2025 10:03 AM CDT Error. documented in this encounter Plan of Treatment Not on file documented as of this encounter Visit Diagnoses Not on filedocumented in this encounter Care Teams Division Field Inspector Relationship Specialty Start Date End Date Isidoro Costello MD [address] [place], [place] [id number] PCP - General Family Medicine 12/18/22 Harley Mcgregor MD Consulting Physician Thoracic Surgery 12/27/18 Cesar Mishra MD Consulting Physician Gastroenterology 11/11/19 Jazmin Bryant NP [address] [place], [place] [id number] Nurse Practitioner Family Medicine 12/18/22 Roge Villanueva MD [address] [place], [place] [id number] Medical Oncologist/Hematologis t Hematology and Oncology 02/19/23 documented as of this encounter
--- OUTSIDE RECORDS SUMMARY | 2025-04-26 17:24 | XMS_ITS | Referral Summary ---
Author Organization [facility] Address [address] [place] [address] Care Team Providers Care Testing Analyst Name Role Phone Harley Mcgregor MD Unavailable [phone] Cesar Mishra MD Unavailable [phone] Isidoro Costello MD Primary Care Provider Jazmin Bryant NP Unavailable Roge Villanueva MD Unavailable [phone] Encounters Date Type Department Care Team Description 5 Telephone [facility] Gastroenterology at [address] [place] [phone] Charles Jauregui NP 5 Telephone [facility] Primary Care at [address] [address] Isidoro Costello MD 5 Telephone [facility] Primary Care at [address] [address] Odessa Edwards MA 5 8:18 AM CDT - 5 11:59 PM CDT Hospital Encounter [address] [address] Upper abdominal pain Discharge Disposition: Discharge to home or self care [address] [address] Ruba Patel 5 Orders Only [facility] Gastroenterology at [address] [place] [address] Cesar Mishra MD Upper abdominal pain (Primary Dx) 5 2:10 PM CDT Anesthesia Event [address] [address] Drew Wells, 5 1:00 PM CDT - 5 1:30 PM CDT Surgery [address] [address] Cesar Mishra MD ESOPHAGOGASTRODUODENOSCOPY BIOPSY 5 11:53 AM CDT - 5 3:13 PM CDT Hospital Encounter [address] [address] Cesar Mishra MD Epigastric pain; Hx of peptic ulcer Discharge Disposition: Discharge to home or self care 5 Telephone [facility] Gastroenterology at [address] [place] [address] Charles Jauregui NP 5 8:15 AM CDT Office Visit [facility] Gastroenterology at [address], [place] [address] Charles Jauregui NP Epigastric abdominal tenderness without rebound tenderness (Primary Dx); Nausea and vomiting, unspecified vomiting type; Chronic gastritis without bleeding, unspecified gastritis type; Angiodysplasia of gastrointestinal tract; Tubular adenoma of colon; Tobacco use disorder; Constipation, unspecified constipation type 5 Results Follow-Up [facility] Primary Care at [address] [address] Abdomen Pelvis WO Contrast 5 1:54 PM CDT - 5 11:59 PM CDT Hospital Encounter [address] [address] Epigastric abdominal tenderness without rebound tenderness Discharge Disposition: Discharge to home or self care 5 Telephone [facility] [address] [place] [address] N[place]ep[place], February D. 5 Results Follow-Up [facility] Primary Care at [address] [phone] Isidoro Costello MD H. pylori antigen, stool Stool 5 Results Follow-Up [facility] Primary Care at [address] [address] Isidoro Costello MD CBC with auto differential, Differential, auto 5 12:33 PM CDT - 5 11:59 PM CDT Hospital Encounter [address] [address] Epigastric abdominal tenderness without rebound tenderness Discharge Disposition: Discharge to home or self care 5 12:30 PM CDT Lab [facility] Outpatient Lab at [address] [phone] 5 8:30 PM CDT - 5 11:59 PM CDT Hospital Encounter [address] [address] Epigastric abdominal tenderness without rebound tenderness Discharge Disposition: Discharge to home or self care 5 3:30 PM CDT Lab [facility] Outpatient Lab at [address] [phone] 5 3:00 PM CDT Office Visit [facility] Primary Care at [address] [phone] Isidoro Costello MD Epigastric abdominal tenderness without rebound tenderness (Primary Dx) from Last 3 Months Allergies No known active allergies Medications cyanocobalamin (Vitamin B-12) 1,000 mcg tabletIndications:Prev ention of Vitamin B12 Deficiency Take 1 tablet (1,000 mcg total) by mouth daily Active vjvbwwfmsevf-kmzb-ivos c acid 18-400 mg-mcg tabletIndications:Zabrina min Deficiency [...] Additional Information Patient not taking.Reported on 03/21/2025 vefyxwghvt-dgqaaelg-do rmoterol (BREZTRI) 160-9-4.8 mcg/actuation inhalerIndications:Bro nchospasm Prevention [...] 09/27/2024 Assessment & Plan (09/27/2024 11:29 AM SUPERVISOR WATERPROOFING): Risks and benefits of hormone replacement (HRT) [...] request. 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 Urged discussion about counseling resources through [facility] Flu shot will be due later this fall Will increase Abilify to 5 mg daily Continuing current regimen otherwise Will leave labs to next [facility], as hematology watching counts and last lipid [...] medications. DDD (degenerative disc disease), lumbar 01/17/20 Lumbar radiculopathy 12/25/2021 Assessment & Plan (10/27/2022 2:00 PM SUPERVISOR WATERPROOFING): Status post laminectomy. Patient is clinically improving. Keep scheduled follow- up appointment with orthopedic surgeon next week. Insomnia secondary to chronic pain 12/25/2021 Left hip pain 12/03/2021 Assessment & Plan (12/03/2021 8:51 PM SUPERVISOR WATERPROOFING): Xrays ordered. Toradol given. Will follow. Chronic left-sided low back pain with left-sided sciatica 12/03/2021 Assessment & Plan (12/03/2021 8:51 PM SUPERVISOR WATERPROOFING): Referred to pain mgmt for further eval/mgmt. Iron deficiency anemia due to chronic blood loss 11/26/2020 Overview (09/21/2017): EGD, colon 2016, iron infusion 2016 Assessment & Plan (06/27/2022 6:43 PM CDT): Suspect iron infusion caused adverse reaction. Recommended that he inform her flare man. Assessment & Plan (11/21/2020 7:58 PM SUPERVISOR WATERPROOFING): Patient has been managed with iv Venofer infusions. Suspect persistent chronic occult GI blood loss plus effect of anemia of chronic disease from alcohol use disorder. Assessment & Plan (10/16/2020 8:48 AM SUPERVISOR WATERPROOFING): Fatigued. Patient will see hematology/oncology for possible iron infusions. Assessment & Plan (06/13/2020 9:14 AM CDT): Resolved. Assessment & Plan (01/04/2020 2:22 PM SUPERVISOR WATERPROOFING): Last hgb and iron levels were normal. Plan to repeat these at next appointment. Assessment & Plan (11/24/2019 9:25 AM SUPERVISOR WATERPROOFING): EGD showed recently bleeding AVM and diffuse [...] done. Assessment & Plan (10/19/2019 11:28 AM SUPERVISOR WATERPROOFING): PCP increased iron supplement to BID about [...] 11/21/2020 Assessment & Plan (11/21/2020 8:02 PM SUPERVISOR WATERPROOFING): She continues to drink and this will [...] prescribed) Assessment & Plan (12/18/2022 2:40 PM SUPERVISOR WATERPROOFING): Has had increased stress/anxiety as of late. She has been out of her Clonazepam. Discussed prn use for this and may want to consider increasing her Celexa for better overall control. Assessment & Plan (10/27/2022 2:00 PM SUPERVISOR WATERPROOFING): Stable. Cont. Current prescription medications. Assessment & Plan (04/27/2022 8:44 PM CDT): Stable. Cont. Current prescription medications. Assessment & Plan (02/27/2021 12:00 PM CDT): Clinically improved, continue current meds. Assessment & Plan (10/16/2020 8:49 AM SUPERVISOR WATERPROOFING): Stable. Cont. Current meds. COPD (chronic obstructive pulmonary disease) 08/2020 Assessment & Plan (12/18/2022 4:38 PM SUPERVISOR WATERPROOFING): Has been using prn inhaler 2x/day due to SOB. Discussed maintenance inhaler and will trial Sherryztri, samples provided. Education provided on maintenance vs prn inhaler. Assessment & Plan (04/27/2022 8:55 PM CDT): At baseline, Cont current prescription medication. Assessment & Plan (07/25/2021 3:42 PM CDT): Pt using albuterol daily and ineffective. Pt offered pulmonology referral and pt declined. Advair added and sent. Pt has f/u in October for recheck Assessment & Plan (02/27/2021 12:00 PM CDT): Mild wheezing. Use albuterol as directed. Patient strongly encouraged to quit smoking. Notify our office if there is no improvement. Assessment & Plan (10/16/2020 8:47 AM SUPERVISOR WATERPROOFING): Stable. Cont. Current meds. Assessment & Plan [...] (11/23/2019): Added automatically from request for surgery [id number] History of alcohol abuse 11/23/2019 Assessment & Plan (03/06/2020 4:45 PM CDT): Patient aware that she should not drink alcohol with the chronic medications she's currently on. She is aware that concomitant use can cause respiratory depression. Assessment & Plan (11/23/2019 10:56 AM SUPERVISOR WATERPROOFING): No alcohol use since hospitalization. History of GI bleed 2019 Overview (2019): Added automatically from request for surgery [id number] Assessment & Plan (11/21/2020 7:57 PM SUPERVISOR WATERPROOFING): H/o bleeding AVMs in the duodenum. Likely recurrent bleeding and possibly AVMs in the small bowel. Will schedule EGD VIOLET to be followed by capsule video camera exam of the small intestine. AVM (arteriovenous malformation) 10/19/2019 Assessment & Plan (11/23/2019 10:57 AM SUPERVISOR WATERPROOFING): Found recently bleeding AVM on EGD done while hospitalized. Pt has no sign of GI bleed at this time. Assessment & Plan (10/19/2019 11:29 AM SUPERVISOR WATERPROOFING): Will schedule EGD due to recent use of Celebrex and history of AVM's. Primary osteoarthritis of right knee 09/02/2018 Arthritis of carpometacarpal (CMC) joint of left thumb 04/12/2018 Degenerative lumbar spinal stenosis 09/23/2017 Assessment & Plan (12/03/2021 8:51 PM SUPERVISOR WATERPROOFING): Referred to pain mgmt. Age-related osteoporosis matthew knight current pathological fracture 09/21/2017 Assessment & Plan (04/27/2022 8:44 PM CDT): Weight-bearing exercises recommended. Assessment & Plan (10/16/2020 8:48 AM SUPERVISOR WATERPROOFING): Weight bearing exercises recommended. Primary hypertension 12/05/2014 Overview (10/16/2020): Assessment & Plan (12/18/2022 2:38 PM SUPERVISOR WATERPROOFING): BP elevated today in office and at previous visit with Dr Ceballos. Patient notes it has been elevated as of late, attributing to stress/anxiety. Will increase the Lisinopril to 5 mg daily. Home BP log and follow up in 6 weeks. Assessment & Plan (10/27/2022 2:01 PM SUPERVISOR WATERPROOFING): Blood pressure is at goal of less [...] meds. Assessment & Plan (10/16/2020 8:44 AM SUPERVISOR WATERPROOFING): Stable. Cont. Current meds. Assessment & Plan (06/13/2020 9:13 AM CDT): Bps within normal range, cont current meds. Assessment & Plan (03/06/2020 4:42 PM CDT): Stable. Cont. Current meds. Generalized anxiety disorder 12/05/2014 Overview (10/16/2020): Assessment & Plan (12/18/2022 2:41 PM SUPERVISOR WATERPROOFING): Has had increased stress/anxiety as of late. She has been out of her Clonazepam. Discussed prn use for this and may want to consider increasing her Celexa for better overall control. Assessment & Plan (10/27/2022 2:01 PM SUPERVISOR WATERPROOFING): Stable. Cont. Current prescription medications. Will hold [...] meds. Assessment & Plan (10/16/2020 8:49 AM SUPERVISOR WATERPROOFING): Clinically improved, continue current meds. Assessment & [...] meds. Assessment & Plan (10/16/2020 8:46 AM SUPERVISOR WATERPROOFING): Asx. Continue current therapy. Managed by gastroenterology. Assessment & Plan (01/04/2020 2:21 PM SUPERVISOR WATERPROOFING): Pt says she has both omeprazole and [...] (06/13/2020): Assessment & Plan (12/18/2022 2:40 PM SUPERVISOR WATERPROOFING): Continuing Lovastatin, no side effects reported. Labs ordered. Assessment & Plan (10/27/2022 2:01 PM SUPERVISOR WATERPROOFING): Low-cholesterol diet recommended. Continue current prescription medications. Assessment & Plan (04/27/2022 8:56 PM CDT): LDL at goal of < 100. Cont current Rx meds. Assessment & Plan (07/25/2021 3:38 PM CDT): Lipid abnormalities are stable, reviewed previous lipid levels in epic. Pharmacotherapy as ordered. Order for lipid panel was given today to be obtained. Pt voiced understanding of lab drawn and continuation of current medication regimen. Assessment & Plan (02/27/2021 11:59 AM CDT): LDL at goal. Continue current management. Assessment & Plan (10/16/2020 8:46 AM SUPERVISOR WATERPROOFING): Stable. Cont. Current meds. Assessment & Plan [...] smoking. Assessment & Plan (10/22/2021 1:56 PM SUPERVISOR WATERPROOFING): Advised patient to quit smoking. Assessment & Plan (02/27/2021 12:00 PM CDT): Advised patient to quit smoking. Assessment & Plan (10/16/2020 8:49 AM SUPERVISOR WATERPROOFING): Advised patient to quit smoking. Assessment & [...] (11/26/2020): Added automatically from request for surgery [id number] Assessment & Plan (02/27/2021 12:00 PM CDT): [...] 02/27/2021 Assessment & Plan (11/21/2020 8:00 PM SUPERVISOR WATERPROOFING): Patient continued to smoke unfortunately and she did try several methods to quit but failed. We discussed again the importance of stopping alcohol on her health overall and specially effect on her lungs. Immunizations Immunization Administration Dates Next Due Influenza, [...] Unspecified 09/06/2016 Tdap 06/09/2014,04/26/2014 ZOSTER LIVE 08/01/2010 Social History Tobacco Use Types Packs/Day Years [...] on file Legal Sex Female 12:33 PM SUPERVISOR WATERPROOFING Gender Identity Not on file Sexual Orientation [...] 03/22/2025 12:04 PM CDT Plan of Treatment Not on file Procedures Procedure Name Priority Date/Time Associated Diagnosis [...] Read Routine (OP Routine) 10/10/2024 3:56 PM SUPERVISOR WATERPROOFING DEXA AXIAL SKELETON BONE DENSITY 1 OR MORE SITES Schedule Routine, Read Routine (OP Routine) 01/13/2024 1:58 PM SUPERVISOR WATERPROOFING Age-related osteoporosis without current pathological fracture COLONOSCOPY [...] Electronically signed by Александр Escobar M.D. BS: JERAD Report ID: [id number] Reading Location: [id number] Procedure Note Александр Escobar MD - 03/28/2025 [...] 03/28/2025 4:33 PM - Electronically signed by Александрslim Escobar M.D. BS: BS Report ID: [id number] Reading Location: [id number] Cesar Mishra MD IMG CT PROCEDURES Final Re sult * Surgical pathology (03/22/2025 2:24 PM CDT) Tissue (Gastric/Stomach biopsy) 03/22/2025 2:22 PM CDT Narrative [facility] - 03/24/2025 3:44 PM CDT EPIC results best viewed via link to PDF [facility] Department of Pathology [address] [place] [address] Note to Patients: This report may contain [...] Final Report Patient Name: ELISE ROMANO Address: [address] [place] [address]- Gender: F : 1950 (Age: 74) Service: Gastro Location: [facility] Hospital #: [id number] Patient Type: [facility] Taken: 03/22/2025 Received: 03/23/2025 Accessioned: 03/23/2025 Reported: [...] determined by the Surgical Pathology Department at [facility] as part of an ongoing quality assurance qa lab analyst program and in compliance with federally mandated [...] characteristics determined by the Surgical Pathology Department [facility]. It has not been cleared or approved by the U. S. Food and Drug Administration. Note for decalcified specimens: This assay has not been validated on decalcified tissues. Results should be interpreted with caution given the possibility of false negativity on decalcified specimens us Cesar Mishra MD LAB PATHOLOGY ORDERABLES F inal Result [facility] [address] [place] [address] * EGD (03/22/2025 12:00 PM CDT) Anatomical Region Laterality Modality Other Narrative Procedure Note Cesar Mishra MD - 03/22/2025 12:00 PM CDT [facility] Patient Name: Elise Romano Procedure Date: 03/22/2025 12:00 PM Date of : 1950 Admit Type: Outpatient Age: 74 Gender: Female Attending MD: Cesar Mishra M.D. Room: [facility] 1 Note Status: Finalized Patient Profile: This is a 74 year old female. Patient complains of significant abdominal pain for 3 months' durationin the upper abdomen mainly epigastric area. No relationship to meals. CT abdomen pelvis without contrast few weeks ago was unremarkable per Procedure: Upper GI endoscopy Indications: Upper abdominal pain Referring MD: Isidoro Costello M.D. Providers: Cesar Msihra M.D. Impression: - Normal examined duodenum. - [...] passed under direct vision. The Endoscope [id number]-H190 [id number] was introduced through the mouth, and advanced [...] 12:00 PM Procedure Code(s): --- Professional --- 44885, Esophagogastroduodenoscopy, flexible, transoral; with biopsy, single or multiple Diagnosis Code(s): --- Professional --- K31.89, Other diseases of stomach and duodenum R10.10, Upper abdominal pain, unspecified CPT copyright 2020 [employer]. All rights reserved. The codes documented in this report are preliminary and upon parts counter specialist reviewmay be revised to meet current compliance requirements. Recognized by the [employer] for promoting quality [...] Marko Blount M.D. RW: CATHERINE Report ID: [id number] Reading Location: [id number] Procedure Note Marko Blount MD - 03/15/2025 [...] Marko Blount M.D. RW: CATHERINE Report ID: [id number] Reading Location: [place] [address] Isidoro Costello MD IMG CT PROCEDURES Final Res ult * H. pylori antigen, stool Stool (02/03/2025 12:33 PM CDT) H. pylori Ag, stool Negative Negative Comment: Interpretative Data Testing performed at the [facility] Microbiology Laboratory using the Curian HpSA lateral [...] last revised November 2020. Testing performed by: [facility], [address] [place]., [address] Stool 02/03/2025 12:3 3 PM CDT 02/03/2025 9:29 PM CDT us Isidoro Costello MD LAB MICROBIOLOGY - GENERAL ORDERABLES Final Result [facility] [id number] [address] Department [place] [address] * (ABNORMAL) Differential, auto (02/02/2025 12:00 PM CDT) Neutrophil abs 6.6(H) 1.5 - 6.5 K/cumm Imm gran abs 0.0 0.0 - 0.1 K/cumm [facility] Lymphocyte abs 2.7 0.8 - 3.3 K/cumm [facility] Monocyte abs 1.1(H) 0.2 - 0.8 K/cumm [facility] Eosinophil abs 0.1 0.0 - 0.5 K/cumm [facility] Basophil abs 0.1 0.0 - 0.1 K/cumm [facility] Neutrophil pct 61.9 % [facility] Comment: Interpretive Data Percent cell count reference ranges are not reported, since discordance with absolute values may lead to misinterpretation of CBC data. Current Interpretive Data was last revised on 2018. Imm gran pct 0.3 % [facility] Comment: Interpretive Data Percent cell count reference ranges are not reported, since discordance with absolute values may lead to misinterpretation of CBC data. Current Interpretive Data was last revised on 2018. Lymphocyte pct 25.5 % [facility] Comment: Interpretive Data Percent cell count reference ranges are not reported, since discordance with absolute values may lead to misinterpretation of CBC data. Current Interpretive Data was last revised on 2018. Monocyte pct 10.0 % [facility] Comment: Interpretive Data Percent cell count reference ranges are not reported, since discordance with absolute values may lead to misinterpretation of CBC data. Current Interpretive Data was last revised on 2018. Eosinophil pct 1.3 % [facility] Comment: Interpretive Data Percent cell count reference ranges are not reported, since discordance with absolute values may lead to misinterpretation of CBC data. Current Interpretive Data was last revised on 2018. Basophil pct 1.0 % [facility] Comment: Interpretive Data Percent cell count reference ranges are not reported, since discordance with absolute values may lead to misinterpretation of CBC data. Current Interpretive Data was last revised on 2018. Blood 02/02/2025 12:0 0 PM CDT 02/02/2025 9:01 PM CDT us Isidoro Costello MD LAB BLOOD ORDERABLES Final Result [facility] [id number] [address] Department [place] [address] * (ABNORMAL) CBC with auto differential (02/02/2025 12:00 PM CDT) WBC 10.7(H) 3.8 - 9.9 K/cumm Hgb 13.9 11.9 - 15.5 g/dL [facility] CH Hct 41.5 35.6 - 45.5 % CERNER Plt 396 150 - 400 K/cumm CERNER [...] SD 53.0(H) 35.7 - 48.1 fL [facility] NRBC abs 0.00 0.00 - 0.01 K/cumm [facility] Blood 02/02/2025 12:0 0 PM CDT 02/02/2025 9:01 PM CDT Isidoro Costello MD LAB BLOOD ORDERABLES Final Result [facility] [id number] [facility] Department of Laboratories [place] [id number] * Screening Mammogram 2D Bilateral (10/10/2024 3:56 PM SUPERVISOR WATERPROOFING) Anatomical Region Laterality Modality Breast Bilateral Mammography Historical Provider IMG MAMMO PROCEDURES Shauna l Result * Dexa Axial Skeleton Bone Density 1 or 2 Site (01/13/2024 1:58 PM SUPERVISOR WATERPROOFING) Anatomical Region Laterality Modality Body N/A Other 01/13/2024 8:40 PM SUPERVISOR WATERPROOFING Narrative 01/13/2024 8:41 PM SUPERVISOR WATERPROOFING EXAM DESCRIPTION: DEXA AXIAL SKELETON BONE DENSITY 1 OR MORE SITES REASON FOR STUDY: 73 y/o year old F with given history of: osteoporosis screening postmenopausal [employer] Developer/Model: [employer] SL (S/N [id number]) CLINICAL INFORMATION: Current height: 62 inches Maximum [...] Spencer Snow M.D. MF: LONA Report ID: [id number] Reading Location: [id number] Procedure Note Spencer Snow MD - 01/13/2024 EXAM DESCRIPTION: DEXA AXIAL SKELETON BONE DENSITY 1 OR MORE SITES REASON FOR STUDY: 73 y/o year old F with given history of:osteoporosis screening postmenopausal [employer] Developer/Model: [employer] SL (S/N [id number]) CLINICAL INFORMATION: Current height: 62 inches Maximum [...] Spencer Snow M.D. MF: LONA Report ID: [id number] Reading Location: [place] [address] us Isidoro Costello MD IMG DXA PROCEDURES Final Re sult * COLONOSCOPY (08/17/2023 8:46 AM CDT) Anatomical Region Laterality Modality Other Narrative Procedure Note Cesar Mishra MD - 08/17/2023 8:46 AM CDT [facility] Patient Name: Elise Romano Procedure Date: 08/17/2023 8:46 AM Date of : 1950 Admit Type: Outpatient Age: 72 Gender: Female Attending MD: Cesar Mishra M.D. Room: [facility] 1 Note Status: Finalized Patient [...] passed under direct vision.The Pediatric Colonoscope [id number]-[id number] [id number] was introduced through the anus and advanced [...] 8:46 AM Procedure Code(s): --- Professional --- 17881, Colonoscopy, flexible; with biopsy, single or multiple Diagnosis Code(s): --- Professional --- Z80.0, Family history of malignant neoplasm of digestive organs D12.8, Benign neoplasm of rectum D12.5, Benign neoplasm of sigmoid colon K57.30, Diverticulosis of large intestine without perforation orabscess without bleeding CPT copyright 2020 [employer]. All rights reserved. The codes documented in this report are preliminary and upon parts counter specialist reviewmay be revised to meet current compliance requirements. Recognized by the [employer] for promoting quality [...] last revised on 2020. Testing performed by: [facility], [address] [place] [address], [place]., [address] Blood specimen (specimen) 06/13/2020 11:24 AM CDT 06/13/2020 2:37 PM CDT us Lalita Domingo DO LAB MICROBIOLOGY - GENERAL ORDERABLES Final Result [facility] [address] [facility] Department [place] [address] from Last 3 Months or Most Recently Relevant to Health Maintenance Insurance [facility] MEDICARE ADVANTAGE [facility] MEDIC[facility] ADVANTAGE [facility] MEDIC[facility] ADV[facility]AGE Advance Directives For more information, please contact: [phone] * Full Code (Latest Code Status on [...] 10:13 AM 11/23/2020 5:02 PM Care Teams Testing Analyst Relationship Specialty Start Date End Date Isidoro Costello MD [address] [facility] [address] [place] [address] PCP - General Family Medicine 12/18/22 Harley Mcgregor MD Consulting Physician Thoracic Surgery 12/27/18 Cesar Mishra MD Consulting Physician Gastroenterology 11/11/19 Jazmin Bryant NP [address] [place] [address] [place], [place] [id number] Nurse Practitioner Family Medicine 12/18/22 Roge Villanueva MD [address] [place] [place] [address] Medical Oncologist/Hematologis t Hematology and Oncology 02/19/23
--- OUTSIDE RECORDS SUMMARY | 2025-04-26 17:24 | XMS_ITS | Patient Health Record ---
Author Organization [facility] As [email or web address] Address [address] [facility] [address] [place] [address] Care Team Providers Care Instructional Technologist Name Role Phone Isidoro Costello MD Primary Care Provider Unavail able Katelynn Talat Unavailable [phone] Allergies No Known Allergies Results Component Value Reference Range Notes UDT Reviewed date:09/29/2024 01:41:19 PM Interpretation: Performing Lab: Notes/Report: THC N 0 - 50 ng/ml Cocaine N 0 - 300 ng/ml Amphetamine N 0 - 1000 ng/ml Buprenorphine (BUP) N 0 - 10 ng/ml Secobarbital (Bar) N 0 - 300 ng/ml Oxazepam (BZO) P 0 - 300 ng/ml 9-hadqvnefnt-4,8-czydmcbp-5,3-diphenylpyrrolidine (PIPPA P) N 0 - 300 ng/ml Methamphetamine (MET) N 0 - 1000 ng/ml Methylenedioxymethamphetamine (MDMA) N 0 - 500 ng/ml Morphine (MOP 300/[id number]) N 0 - 300 ng/ml Methadone (MTD) N 0 - 300 ng/ml Phencyclidine (PCP) N 0 - 25 ng/ml Nortriptyline (TCA) N 0 - 1000 ng/ml Oxycodone N 0 - 300 ng/ml x N 0 - 300 ng/ml UDT Reviewed date:08/12/2024 02:15:24 PM Interpretation: Performing Lab: Notes/Report: THC P 0 - 50 ng/ml Cocaine N 0 - 300 ng/ml Amphetamine N 0 - 1000 ng/ml Buprenorphine (BUP) N 0 - 10 ng/ml Secobarbital (Bar) N 0 - 300 ng/ml Oxazepam (BZO) P 0 - 300 ng/ml 5-twpijjvebi-0,7-mnzlpwrj-1,3-diphenylpyrrolidine (PIPPA P) N 0 - 300 ng/ml Methamphetamine (MET) N 0 - 1000 ng/ml Methylenedioxymethamphetamine (MDMA) N 0 - 500 ng/ml Morphine (MOP 300/[id number]) N 0 - 300 ng/ml Methadone (MTD) N 0 - 300 ng/ml Phencyclidine (PCP) N 0 - 25 ng/ml Nortriptyline (TCA) N 0 - 1000 ng/ml Oxycodone N 0 - 300 ng/ml x N 0 - 300 ng/ml Reason For Referral No Information Medications Medication SIG (Take, Route, Frequency, Duration) Notes Start Date End Date Status Lisinopril 5 MG Oral for 90 Days Active Lovastatin 40 MG Oral for 90 Days Active diazePAM 5 MG Oral for 30 Days Active Citalopram Hydrobromide 20 MG 1 tablet Oral Once a day for 30 days Active QUEtiapine Fumarate ER 50 MG 2 tablet at bedtime Orally Once a day for 90 days every night at 8 pm Active amLODIPine Besylate 5 MG Oral for 90 Days Active Mirtazapine 7.5 MG Oral for 14 Days Not-Taking DULoxetine HCl 60 MG 1 capsule Orally On ce a day for 90 days Active Albuterol Sulfate HFA 108 (90 Base) MCG/ACT Inhalation for 80 Days Active Ibandronate Sodium 150 MG Oral for 90 Days Active ARIPiprazole 2 MG Oral for 7 Days Not-Taking diazePAM 5 MG Oral for 30 Days Not-Taking diazePAM 5 MG Oral for 30 Days Not-Taking clonazePAM 1 MG Oral for 30 Days Not-Taking Social History Tobacco Use: Social History Observation Description Date Details (start date - stop date) Current Smoker 08/16/1974 - NA Sex Assigned At : Social History Observation Description Sex Assigned At Female Household Question Answer Notes Marital status: Number of adults in household: 1 Level of education: finished high school Tobacco Control (Standard) Question Answer Notes Tobacco use: Current smoker When did you start smoking? 08/16/1974 How often do you smoke cigarettes? Every day How many cigarettes a day do you smoke? 11-20 How soon after you wake up do you smoke your fir st cigarette? 6-30 minutes Are you interested in quitting? Not ready to debora t AUDIT-C (Standard) Question Answer Notes Did you have a drink contain ing alcohol in the past year? Yes How often did you have six o r more drinks on one occasion in the past year? 2 to 4 times a month (2 points) How many drinks did you have on a typical day when you were drinking in the past year? 1 or 2 drinks (0 point) How often did you have a dri nk containing alcohol in the past year? Monthly or less (1 point) Points 3 Interpretation Positive Problems Problem Type SNOMED Code ICD Code Onset Dates Problem Status W/U Status Risk Notes Problem 76679156 Major depressive disorder, recurrent severe without psychotic features (F33.2) Active confirmed Problem Generalized anxiety disorder (73224046) Generalized anxiety disorder (F41.1) 10/16/20 20 Active confirmed Problem Age-related osteoporosis (898165401) Age-related osteoporosis without current pathological fracture (M81.0) 09/21/20 17 Active confirmed Problem Primary hypertension (52250296) Primary hypertension (I10) 04/21/20 22 Active confirmed Problem COPD - Chronic obstructive pulmonary disease (62468512) COPD (chronic obstructive pulmonary disease) (J44.9) 02/17/20 20 Active confirmed Problem Osteoarthritis of knee (581022737) Primary osteoarthritis of right knee (M17.11) 09/02/20 18 Active confirmed Problem Degenerative lumbar spinal stenosis (290309983) Degenerative lumbar spinal stenosis (M48.061) 01/17/20 22 Active confirmed Problem Personal history of primary malignant neoplasm of lung (658241774) History of lung cancer (Z85.118) 11/10/19 20 Active confirmed Problem Arteriovenous malformation (93291583) AVM (arteriovenous malformation) (Q27.30) 10/19/20 19 Active confirmed Vital Signs Heart Rate 102 /min 09/29/2024 Height-cm 157.48 cm 09/29/2024 Blood pressure diastolic 72 mm Hg 09/29/2024 Weight-kg 57.15 kg 09/29/2024 Height 62 in 09/29/2024 Blood pressure systolic 117 mm Hg 09/29/2024 Weight 126 lbs 09/29/2024 BMI 23.04 kg/m2 09/29/2024 Encounters Encounter Location Date [facility] [address] [place] [id number] 08/12/2024 Talat Paec Major depressive disorder, recurrent severe without psychotic features F33.2 ; Generalized anxiety disorder F41.1 and COPD (chronic obstructive pulmonary disease) J44.9 [facility] [employer] [facility] [address] [facility] [address] [place] [address] 09/01/2024 Talat Pace Major depressive disorder, recurrent severe without psychotic features F33.2 ; Generalized anxiety disorder F41.1 ; COPD (chronic obstructive pulmonary disease) J44.9 ; AVM (arteriovenous malformation) Q27.30 and Primary osteoarthritis of right knee M17.11 [facility] [employer] [place] [id number] [facility] [address] [facility] [address] [place] [address] 09/29/2024 Talat Pace Major depressive disorder, recurrent severe without psychotic features F33.2 ; Generalized anxiety disorder F41.1 ; COPD (chronic obstructive pulmonary disease) J44.9 ; AVM (arteriovenous malformation) Q27.30 and Primary osteoarthritis of right knee M17.11 [facility] [employer] [facility] [address] [facility] [address] [facility] [address] [place] [address] 10/03/2024 Talat Pace Assessments Encounter Date Diagnosis (ICD Code) Assessment Notes Treatment Notes Treatment Clinical Notes Section Notes 09/01/2024 Major depressive disorder, recurrent severe without psychotic features (ICD-10 - F33.2) Major Depressive Disorder - Plan: - Add duloxetine 30 mg daily for additional depression and anxiety management. - Encourage the patient to consider counseling as an adjunct to pharmacotherapy. - Reevaluate the effectiveness of the medication regimen in 4 weeks. Generalized Anxiety Disorder - Plan: - Continue diazepam as prescribed. - Monitor the patient's response to the addition of duloxetine for anxiety management. - Reevaluate the effectiveness of the medication regimen in 4 weeks. Insomnia - Plan: - Increase quetiapine dosage to 2 tablets nightly for improved sleep. - Reevaluate the effectiveness of the increased quetiapine dosage in 4 weeks. Iron Deficiency Anemia - Plan: - Continue iron supplementation as prescribed. - Monitor lab results for continued improvement. Cannabis Use - Plan: - Instruct the patient to discontinue marijuana use. - Reevaluate the patient's eligibility for clonazepam prescription in 4 weeks, contingent on negative urine drug screen for marijuana. Medication Refill - Plan: - Send a prescription for citalopram to [facility] in [place]. Follow-up - Plan: - Schedule a follow-up appointment in 4 weeks to assess the patient's response to medication changes and discuss potential clonazepam prescription. 09/29/2024 Major depressive disorder, recurrent severe without psychotic features (ICD-10 - F33.2) Adjustment disorder with mixed anxiety and depressed mood - Assessment: Patient experiencing adjustment disorder related to grandson's incarceration. - Plan: - Increase duloxetine to 60 mg daily. - Continue citalopram 20 mg daily. - Encourage consideration of counseling or therapy for additional support, though patient is currently resistant to the idea. - Follow-up in 2 months to reassess symptoms and medication effectiveness. Insomnia - Assessment: Patient reports waking up about 3 times a night despite medication. - Plan: - Continue quetiapine as prescribed for sleep. - Monitor sleep patterns and discuss potential adjustments in future visits if needed. Anxiety - Assessment: Patient reports feeling shaky and quivering inside due to anxiety. - Plan: - Consider adding buspirone for anxiety if symptoms persist or worsen after increasing duloxetine. - Encourage patient to discuss concerns and stressors with support system, particularly son and daughter. Hypertension - Assessment: Patient reports blood pressure had been running high but was low at today's visit. - Plan: - Continue monitoring blood pressure with Dr. Costello. - Follow-up with Dr. Costello for any necessary adjustments to blood pressure management. Medication refills - Plan: - Provide 90-day prescription refills for quetiapine, duloxetine, and citalopram. Follow-up - Plan: - Schedule a follow-up appointment in 2 months (November) to reassess patient's symptoms and medication effectiveness. - Encourage patient to reach out sooner if symptoms worsen or new concerns arise. 08/12/2024 Major depressive disorder, recurrent severe without psychotic features (ICD-10 - F33.2) Major Depressive Disorder - Assessment: Patient reports depression since the , worsening after 's last year. Symptoms include lack of enjoyment, poor concentration, and social isolation. - Plan: - Continue citalopram 20 mg daily -- Consider switching back to clonazepam or adding low-dose quetiapine for mood stabilization and sleep in future visits if no improvement Add Quetiapine er 50 mg at 8 pm - Follow-up in 2-3 weeks to assess progress Generalized Anxiety Disorder - Assessment: Patient describes feeling shaky inside and out, constant anxiety. - Plan: - Continue diazepam 5 mg twice a day - Add buspirone 5 mg twice a day, increase to three times a day as tolerated - Consider switching back to clonazepam in future visits if no improvement - Follow-up in 2-3 weeks to assess progress Insomnia - Assessment: Patient reports waking up 3 times per night. - Plan: - Consider adding low-dose quetiapine for sleep in future visits if no improvement with current medications - Instruct patient to take quetiapine at 8 p.m. if prescribed, and monitor for tiredness before bed - Check if quetiapine is covered by insurance Iron Deficiency Anemia - Plan: - Continue iron supplements as prescribed High Blood Pressure - Plan: - Continue amlodipine and lisinopril as prescribed High Cholesterol - Plan: - Continue rosuvastatin as prescribed Restless Leg Syndrome - Plan: - Continue ropinirole as prescribed History of Lung Cancer - Assessment: Patient reports left upper lobe removal in 2000, no chemo or radiation needed. - Plan: - Continue annual CT scans and follow-up with oncologist as needed Smoking Cessation - Assessment: Patient currently smokes about a pack a day, more on bad days. - Plan: - Encourage patient to continue attempting to quit smoking - Discuss smoking cessation options in future visits if needed Social Isolation - Assessment: Patient reports avoiding people and not wanting to leave the house. - Plan: - Encourage patient to gradually increase social interactions as depression and anxiety improve - Consider referral to therapy or support groups if needed Follow-up in 2-3 weeks to assess progress and make any necessary medication adjustments. 08/12/2024 Generalized anxiety disorder (ICD-10 - F41.1) Major Depressive Disorder - Assessment: Patient reports depression since the , worsening after 's last year. Symptoms include lack of enjoyment, poor concentration, and social isolation. - Plan: - Continue citalopram 20 mg daily -- Consider switching back to clonazepam or adding low-dose quetiapine for mood stabilization and sleep in future visits if no improvement Add Quetiapine er 50 mg at 8 pm - Follow-up in 2-3 weeks to assess progress Generalized Anxiety Disorder - Assessment: Patient describes feeling shaky inside and out, constant anxiety. - Plan: - Continue diazepam 5 mg twice a day - Add buspirone 5 mg twice a day, increase to three times a day as tolerated - Consider switching back to clonazepam in future visits if no improvement - Follow-up in 2-3 weeks to assess progress Insomnia - Assessment: Patient reports waking up 3 times per night. - Plan: - Consider adding low-dose quetiapine for sleep in future visits if no improvement with current medications - Instruct patient to take quetiapine at 8 p.m. if prescribed, and monitor for tiredness before bed - Check if quetiapine is covered by insurance Iron Deficiency Anemia - Plan: - Continue iron supplements as prescribed High Blood Pressure - Plan: - Continue amlodipine and lisinopril as prescribed High Cholesterol - Plan: - Continue rosuvastatin as prescribed Restless Leg Syndrome - Plan: - Continue ropinirole as prescribed History of Lung Cancer - Assessment: Patient reports left upper lobe removal in 2000, no chemo or radiation needed. - Plan: - Continue annual CT scans and follow-up with oncologist as needed Smoking Cessation - Assessment: Patient currently smokes about a pack a day, more on bad days. - Plan: - Encourage patient to continue attempting to quit smoking - Discuss smoking cessation options in future visits if needed Social Isolation - Assessment: Patient reports avoiding people and not wanting to leave the house. - Plan: - Encourage patient to gradually increase social interactions as depression and anxiety improve - Consider referral to therapy or support groups if needed Follow-up in 2-3 weeks to assess progress and make any necessary medication adjustments. 09/29/2024 Generalized anxiety disorder (ICD-10 - F41.1) Adjustment disorder with mixed anxiety and depressed mood - Assessment: Patient experiencing adjustment disorder related to grandson's incarceration. - Plan: - Increase duloxetine to 60 mg daily. - Continue citalopram 20 mg daily. - Encourage consideration of counseling or therapy for additional support, though patient is currently resistant to the idea. - Follow-up in 2 months to reassess symptoms and medication effectiveness. Insomnia - Assessment: Patient reports waking up about 3 times a night despite medication. - Plan: - Continue quetiapine as prescribed for sleep. - Monitor sleep patterns and discuss potential adjustments in future visits if needed. Anxiety - Assessment: Patient reports feeling shaky and quivering inside due to anxiety. - Plan: - Consider adding buspirone for anxiety if symptoms persist or worsen after increasing duloxetine. - Encourage patient to discuss concerns and stressors with support system, particularly son and daughter. Hypertension - Assessment: Patient reports blood pressure had been running high but was low at today's visit. - Plan: - Continue monitoring blood pressure with Dr. Costello. - Follow-up with Dr. Pravin for any necessary adjustments to blood pressure management. Medication refills - Plan: - Provide 90-day prescription refills for quetiapine, duloxetine, and citalopram. Follow-up - Plan: - Schedule a follow-up appointment in 2 months (November) to reassess patient's symptoms and medication effectiveness. - Encourage patient to reach out sooner if symptoms worsen or new concerns arise. 09/01/2024 Generalized anxiety disorder (ICD-10 - F41.1) Major Depressive Disorder - Plan: - Add duloxetine 30 mg daily for additional depression and anxiety management. - Encourage the patient to consider counseling as an adjunct to pharmacotherapy. - Reevaluate the effectiveness of the medication regimen in 4 weeks. Generalized Anxiety Disorder - Plan: - Continue diazepam as prescribed. - Monitor the patient's response to the addition of duloxetine for anxiety management. - Reevaluate the effectiveness of the medication regimen in 4 weeks. Insomnia - Plan: - Increase quetiapine dosage to 2 tablets nightly for improved sleep. - Reevaluate the effectiveness of the increased quetiapine dosage in 4 weeks. Iron Deficiency Anemia - Plan: - Continue iron supplementation as prescribed. - Monitor lab results for continued improvement. Cannabis Use - Plan: - Instruct the patient to discontinue marijuana use. - Reevaluate the patient's eligibility for clonazepam prescription in 4 weeks, contingent on negative urine drug screen for marijuana. Medication Refill - Plan: - Send a prescription for citalopram to [facility]. Follow-up - Plan: - Schedule a follow-up appointment in 4 weeks to assess the patient's response to medication changes and discuss potential clonazepam prescription. 09/01/2024 COPD (chronic obstructive pulmonary disease) (ICD-10 - J44.9) Major Depressive Disorder - Plan: - Add duloxetine 30 mg daily for additional depression and anxiety management. - Encourage the patient to consider counseling as an adjunct to pharmacotherapy. - Reevaluate the effectiveness of the medication regimen in 4 weeks. Generalized Anxiety Disorder - Plan: - Continue diazepam as prescribed. - Monitor the patient's response to the addition of duloxetine for anxiety management. - Reevaluate the effectiveness of the medication regimen in 4 weeks. Insomnia - Plan: - Increase quetiapine dosage to 2 tablets nightly for improved sleep. - Reevaluate the effectiveness of the increased quetiapine dosage in 4 weeks. Iron Deficiency Anemia - Plan: - Continue iron supplementation as prescribed. - Monitor lab results for continued improvement. Cannabis Use - Plan: - Instruct the patient to discontinue marijuana use. - Reevaluate the patient's eligibility for clonazepam prescription in 4 weeks, contingent on negative urine drug screen for marijuana. Medication Refill - Plan: - Send a prescription for citalopram to [facility] in [place]. Follow-up - Plan: - Schedule a follow-up appointment in 4 weeks to assess the patient's response to medication changes and discuss potential clonazepam prescription. 09/29/2024 COPD (chronic obstructive pulmonary disease) (ICD-10 - J44.9) Adjustment disorder with mixed anxiety and depressed mood - Assessment: Patient experiencing adjustment disorder related to grandson's incarceration. - Plan: - Increase duloxetine to 60 mg daily. - Continue citalopram 20 mg daily. - Encourage consideration of counseling or therapy for additional support, though patient is currently resistant to the idea. - Follow-up in 2 months to reassess symptoms and medication effectiveness. Insomnia - Assessment: Patient reports waking up about 3 times a night despite medication. - Plan: - Continue quetiapine as prescribed for sleep. - Monitor sleep patterns and discuss potential adjustments in future visits if needed. Anxiety - Assessment: Patient reports feeling shaky and quivering inside due to anxiety. - Plan: - Consider adding buspirone for anxiety if symptoms persist or worsen after increasing duloxetine. - Encourage patient to discuss concerns and stressors with support system, particularly son and daughter. Hypertension - Assessment: Patient reports blood pressure had been running high but was low at today's visit. - Plan: - Continue monitoring blood pressure with Dr. Costello. - Follow-up with Dr. Costello for any necessary adjustments to blood pressure management. Medication refills - Plan: - Provide 90-day prescription refills for quetiapine, duloxetine, and citalopram. Follow-up - Plan: - Schedule a follow-up appointment in 2 months (November) to reassess patient's symptoms and medication effectiveness. - Encourage patient to reach out sooner if symptoms worsen or new concerns arise. 08/12/2024 COPD (chronic obstructive pulmonary disease) (ICD-10 - J44.9) Major Depressive Disorder - Assessment: Patient reports depression since the , worsening after 's last year. Symptoms include lack of enjoyment, poor concentration, and social isolation. - Plan: - Continue citalopram 20 mg daily -- Consider switching back to clonazepam or adding low-dose quetiapine for mood stabilization and sleep in future visits if no improvement Add Quetiapine er 50 mg at 8 pm - Follow-up in 2-3 weeks to assess progress Generalized Anxiety Disorder - Assessment: Patient describes feeling shaky inside and out, constant anxiety. - Plan: - Continue diazepam 5 mg twice a day - Add buspirone 5 mg twice a day, increase to three times a day as tolerated - Consider switching back to clonazepam in future visits if no improvement - Follow-up in 2-3 weeks to assess progress Insomnia - Assessment: Patient reports waking up 3 times per night. - Plan: - Consider adding low-dose quetiapine for sleep in future visits if no improvement with current medications - Instruct patient to take quetiapine at 8 p.m. if prescribed, and monitor for tiredness before bed - Check if quetiapine is covered by insurance Iron Deficiency Anemia - Plan: - Continue iron supplements as prescribed High Blood Pressure - Plan: - Continue amlodipine and lisinopril as prescribed High Cholesterol - Plan: - Continue rosuvastatin as prescribed Restless Leg Syndrome - Plan: - Continue ropinirole as prescribed History of Lung Cancer - Assessment: Patient reports left upper lobe removal in 2000, no chemo or radiation needed. - Plan: - Continue annual CT scans and follow-up with oncologist as needed Smoking Cessation - Assessment: Patient currently smokes about a pack a day, more on bad days. - Plan: - Encourage patient to continue attempting to quit smoking - Discuss smoking cessation options in future visits if needed Social Isolation - Assessment: Patient reports avoiding people and not wanting to leave the house. - Plan: - Encourage patient to gradually increase social interactions as depression and anxiety improve - Consider referral to therapy or support groups if needed Follow-up in 2-3 weeks to assess progress and make any necessary medication adjustments. 09/01/2024 AVM (arteriovenous malformation) (ICD-10 - Q27.30) Major Depressive Disorder - Plan: - Add duloxetine 30 mg daily for additional depression and anxiety management. - Encourage the patient to consider counseling as an adjunct to pharmacotherapy. - Reevaluate the effectiveness of the medication regimen in 4 weeks. Generalized Anxiety Disorder - Plan: - Continue diazepam as prescribed. - Monitor the patient's response to the addition of duloxetine for anxiety management. - Reevaluate the effectiveness of the medication regimen in 4 weeks. Insomnia - Plan: - Increase quetiapine dosage to 2 tablets nightly for improved sleep. - Reevaluate the effectiveness of the increased quetiapine dosage in 4 weeks. Iron Deficiency Anemia - Plan: - Continue iron supplementation as prescribed. - Monitor lab results for continued improvement. Cannabis Use - Plan: - Instruct the patient to discontinue marijuana use. - Reevaluate the patient's eligibility for clonazepam prescription in 4 weeks, contingent on negative urine drug screen for marijuana. Medication Refill - Plan: - Send a prescription for citalopram to [facility] in [place]. Follow-up - Plan: - Schedule a follow-up appointment in 4 weeks to assess the patient's response to medication changes and discuss potential clonazepam prescription. 09/29/2024 AVM (arteriovenous malformation) (ICD-10 - Q27.30) Adjustment disorder with mixed anxiety and depressed mood - Assessment: Patient experiencing adjustment disorder related to grandson's incarceration. - Plan: - Increase duloxetine to 60 mg daily. - Continue citalopram 20 mg daily. - Encourage consideration of counseling or therapy for additional support, though patient is currently resistant to the idea. - Follow-up in 2 months to reassess symptoms and medication effectiveness. Insomnia - Assessment: Patient reports waking up about 3 times a night despite medication. - Plan: - Continue quetiapine as prescribed for sleep. - Monitor sleep patterns and discuss potential adjustments in future visits if needed. Anxiety - Assessment: Patient reports feeling shaky and quivering inside due to anxiety. - Plan: - Consider adding buspirone for anxiety if symptoms persist or worsen after increasing duloxetine. - Encourage patient to discuss concerns and stressors with support system, particularly son and daughter. Hypertension - Assessment: Patient reports blood pressure had been running high but was low at today's visit. - Plan: - Continue monitoring blood pressure with Dr. Costello. - Follow-up with Dr. Costello for any necessary adjustments to blood pressure management. Medication refills - Plan: - Provide 90-day prescription refills for quetiapine, duloxetine, and citalopram. Follow-up - Plan: - Schedule a follow-up appointment in 2 months (November) to reassess patient's symptoms and medication effectiveness. - Encourage patient to reach out sooner if symptoms worsen or new concerns arise. 09/29/2024 Primary osteoarthritis of right knee (ICD-10 - M17.11) Adjustment disorder with mixed anxiety and depressed mood - Assessment: Patient experiencing adjustment disorder related to grandson's incarceration. - Plan: - Increase duloxetine to 60 mg daily. - Continue citalopram 20 mg daily. - Encourage consideration of counseling or therapy for additional support, though patient is currently resistant to the idea. - Follow-up in 2 months to reassess symptoms and medication effectiveness. Insomnia - Assessment: Patient reports waking up about 3 times a night despite medication. - Plan: - Continue quetiapine as prescribed for sleep. - Monitor sleep patterns and discuss potential adjustments in future visits if needed. Anxiety - Assessment: Patient reports feeling shaky and quivering inside due to anxiety. - Plan: - Consider adding buspirone for anxiety if symptoms persist or worsen after increasing duloxetine. - Encourage patient to discuss concerns and stressors with support system, particularly son and daughter. Hypertension - Assessment: Patient reports blood pressure had been running high but was low at today's visit. - Plan: - Continue monitoring blood pressure with Dr. Costello. - Follow-up with Dr. Costello for any necessary adjustments to blood pressure management. Medication refills - Plan: - Provide 90-day prescription refills for quetiapine, duloxetine, and citalopram. Follow-up - Plan: - Schedule a follow-up appointment in 2 months (November) to reassess patient's symptoms and medication effectiveness. - Encourage patient to reach out sooner if symptoms worsen or new concerns arise. 09/01/2024 Primary osteoarthritis of right knee (ICD-10 - M17.11) Major Depressive Disorder - Plan: - Add duloxetine 30 mg daily for additional depression and anxiety management. - Encourage the patient to consider counseling as an adjunct to pharmacotherapy. - Reevaluate the effectiveness of the medication regimen in 4 weeks. Generalized Anxiety Disorder - Plan: - Continue diazepam as prescribed. - Monitor the patient's response to the addition of duloxetine for anxiety management. - Reevaluate the effectiveness of the medication regimen in 4 weeks. Insomnia - Plan: - Increase quetiapine dosage to 2 tablets nightly for improved sleep. - Reevaluate the effectiveness of the increased quetiapine dosage in 4 weeks. Iron Deficiency Anemia - Plan: - Continue iron supplementation as prescribed. - Monitor lab results for continued improvement. Cannabis Use - Plan: - Instruct the patient to discontinue marijuana use. - Reevaluate the patient's eligibility for clonazepam prescription in 4 weeks, contingent on negative urine drug screen for marijuana. Medication Refill - Plan: - Send a prescription for citalopram to [facility] [place]. Follow-up - Plan: - Schedule a follow-up appointment in 4 weeks to assess the patient's response to medication changes and discuss potential clonazepam prescription. 08/12/2024 Other Learning About Depression Screening material was printed Major Depressive Disorder - Assessment: Patient reports depression since the , worsening after 's last year. Symptoms include lack of enjoyment, poor concentration, and social isolation. - Plan: - Continue citalopram 20 mg daily -- Consider switching back to clonazepam or adding low-dose quetiapine for mood stabilization and sleep in future visits if no improvement Add Quetiapine er 50 mg at 8 pm - Follow-up in 2-3 weeks to assess progress Generalized Anxiety Disorder - Assessment: Patient describes feeling shaky inside and out, constant anxiety. - Plan: - Continue diazepam 5 mg twice a day - Add buspirone 5 mg twice a day, increase to three times a day as tolerated - Consider switching back to clonazepam in future visits if no improvement - Follow-up in 2-3 weeks to assess progress Insomnia - Assessment: Patient reports waking up 3 times per night. - Plan: - Consider adding low-dose quetiapine for sleep in future visits if no improvement with current medications - Instruct patient to take quetiapine at 8 p.m. if prescribed, and monitor for tiredness before bed - Check if quetiapine is covered by insurance Iron Deficiency Anemia - Plan: - Continue iron supplements as prescribed High Blood Pressure - Plan: - Continue amlodipine and lisinopril as prescribed High Cholesterol - Plan: - Continue rosuvastatin as prescribed Restless Leg Syndrome - Plan: - Continue ropinirole as prescribed History of Lung Cancer - Assessment: Patient reports left upper lobe removal in 2000, no chemo or radiation needed. - Plan: - Continue annual CT scans and follow-up with oncologist as needed Smoking Cessation - Assessment: Patient currently smokes about a pack a day, more on bad days. - Plan: - Encourage patient to continue attempting to quit smoking - Discuss smoking cessation options in future visits if needed Social Isolation - Assessment: Patient reports avoiding people and not wanting to leave the house. - Plan: - Encourage patient to gradually increase social interactions as depression and anxiety improve - Consider referral to therapy or support groups if needed Follow-up in 2-3 weeks to assess progress and make any necessary medication adjustments. Plan Of Treatment No Information Insurance Providers Payer Name Payer Address Payer Phone Subscriber Number Group Number Insured Name Patient Relationship to Insured Coverage Start Date Coverage End Date [facility] [address] [address] [place] [phone] [id number] Elise Martinez Self - patient is the insured Medical (General) History Surgical History Surgery Date(Month/Year) back surgery 10/2022
--- OUTSIDE RECORDS SUMMARY | 2025-04-26 17:24 | XMS_ITS | Encounter Summary ---
Author Organization [facility] Address [address] [place] [address] Phone Care Team Providers Care Explosive Ordnance Handler Name Role Phone DomingoLalita Ameya PHAM Primary Care Provider [phone] Isidoro Costello MD Primary Care Provider [phone] Encounter Details Date Type Department Care Team (Latest Contact Info) Description 10/21/2022 [facility] [address] [place] [address] Balaji Jenkins MD [address] [place], [place] [id number] Preop testing (Primary Dx); Lumbar radiculopathy Social History Tobacco Use Types Packs/Day Years Used Date Smoking Tobacco: Former Cigarettes 1 50 1 12/10/1971 - 10/09/2022 Smokeless Tobacco: Never Alcohol Use Standard Drinks/Week Comments Yes 0 (1 standard drink = 0.6 oz pur e alcohol) social Comments No Sex and Gender Information Value Date Recorded Sex Assigned at Not on file Legal Sex Female 7:39 PM CDT Gender Identity Not on file Sexual Orientation Not on file COVID-19 Exposure Response Date Recorded In the last 10 days, have yo u been in contact with someone who was confirmed or suspected to have Coronavirus/COVID-19? 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 documented as of this encounter Plan of Treatment Not on file documented as of this encounter Results * TYPE & SCREEN (CROSSMATCH CONVERTIBLE) (10/21/2022 11:10 AM CONCRETE GUN OPERATOR) ABO TYPING O 10/21/2022 12:30 PM CONCRETE GUN OPERATOR [facility] BLOOD BANK RH Positive 10/21/2022 12:30 PM CONCRETE GUN OPERATOR [facility] BLOOD BANK ABSC Negative 10/21/2022 12:30 PM CONCRETE GUN OPERATOR [facility] BLOOD BANK Blood BLOOD SPECIMEN / Unknown Venipuncture / Unknown 10/21/2022 11:10 AM CONCRETE GUN OPERATOR 10/21/2022 11:24 AM CONCRETE GUN OPERATOR us Balaji Jenkins MD BLOOD BANK ORDERABLES Edited Res ult - Final [facility] BLOOD BANK [address] [place] [address] documented in this encounter Visit Diagnoses Diagnosis Preop testing- Primary Preoperative examination, unspecified Lumbar radiculopathy Thoracic or lumbosacral neuritis or radiculitis, unspecified documented in this encounter Additional Health Concerns Infection Onset Date Last Indicated Resolved Time COVID - 19 Confirmed 10/22/2022 10/22/2022 023 12:16 AM CONCRETE GUN OPERATOR documented as of this encounter Care Teams Explosive Ordnance Handler Relationship Specialty Start Date End Date Lalita Domingo DO [address] [facility] [address] [place] [address] [place] [id number] PCP - General Family Medicine 05/16/20 04/01/23 Isidoro Costello MD [address] [place] [address] PCP - General Family Medicine 04/02/23 documented as of this encounter
== END 2025-04-26 16:21 | disposition home or self-care (01) ==
PROVIDERS: Emergency Provider Nurse Practitioner; PCP Family Medicine
DX: H72.91 Unspecified perforation of tympanic membrane, right ear (principal)
CPT/HCPCS: 99202; G0463